=== PATIENT | female | born 1995 | race Caucasian/White ===

== ENCOUNTER 2017-03-09 04:03 | Emergency (ER) | payer OTHER ==
[2017-03-09] MEDS ORDERED: Morphine INJ* 4 MG/ML 1 ML SYRINGE ONE (04:58)
[2017-03-09] MEDS ORDERED: Ondansetron INJ* 2 MG/ML VIAL ONE (04:59)
[2017-03-09 05:30] LABS: Hematocrit 40 % (35-47); Hemoglobin 13.3 g/dl (12.0-16.0); Mean Corpuscular HGB Conc 33 g/dl (31-36); Mean Corpuscular Hemoglobin 27 pg (27-31); Mean Corpuscular Volume 81 fL (80-97); Mean Platelet Volume 8 um3 (7.4-10.4); Red Blood Count 4.95 10^6/ul (4.0-5.4); Red Cell Distribution Width 14 % (10.5-15); White Blood Count 11.9 10^3/ul (3.5-10.8)
[2017-03-09 05:33] LABS: Albumin 4.1 g/dL (3.2-5.2); BUN/Creatinine Ratio 14.5 (8-20); EGFR African American 126.1 (>60); Globulin 3.4 g/dL (2-4); Potassium 3.6 mmol/L (3.5-5.0); Total Bilirubin 0.2 mg/dL (0.2-1.0); Total Protein 7.5 g/dL (6.4-8.9)
[2017-03-09] MEDS ORDERED: Iohexol 300* (CONTRAST) 10 ML SDV IV ONE (05:54)
--- NOTE | 2017-03-09 06:01 | ED ---
Mariusz Burroughs Michael, scribed for Stefan Staples MD on 03/09/17 at 0523 . Abdominal Pain/Female - HPI Summary HPI Summary: 21 y/o female comes to the ED presenting with RUQ abd pain since 0100 this morning. The pt reports that the pain is constant and not aggravated or alleviated by anything. The pt rates the pain a 6 out of 10 on a pain assessment scale. She also c/o nausea. The PMHx is significant for gall stones. - History of Current Complaint Chief Complaint: EDAbdPain Stated Complaint: UPPER AND LOWER RIGHT QUAD PAIN Hx Obtained From: Patient, Medical Records Hx Last Menstrual Period: 3 weeks ago. Onset/Duration: Sudden Onset, Lasting Hours, Still Present Timing: Constant Severity Initially: Moderate Severity Currently: Moderate Pain Intensity: 6 Pain Scale Used: 0-10 Numeric Location: Discrete At: RUQ Radiates: No Aggravating Factor(s): Nothing Alleviating Factor(s): Nothing Associated Signs and Symptoms: Positive: Nausea Allergies/Adverse Reactions: Allergies Allergy/AdvReac Type Severity Reaction Status Date / Time Azithromycin [From Zithromax] Allergy Hives Verified 09/06/16 21:52 Latex Allergy Blisters Verified 09/06/16 21:52 Sulfamethoxazole Allergy Hives Verified 09/06/16 21:52 w/Trimethoprim [From Bactrim] Adhesive Tape AdvReac Intermediate See Comment Verified 09/06/16 21:52 Zolpidem [From Ambien] AdvReac Intense Verified 09/06/16 21:52 panic attack PMH/Surg Hx/FS Hx/Imm Hx Endocrine/Hematology History: Denies: Hx Anticoagulant Therapy, Hx Diabetes, Hx Thyroid Disease Cardiovascular History: Denies: Hx Congestive Heart Failure, Hx Deep Vein Thrombosis, Hx Hypertension , Hx Myocardial Infarction, Hx Pacemaker/ICD Respiratory History: Reports: Hx Asthma - allergy induced Denies: Hx Chronic Obstructive Pulmonary Disease (COPD), Hx Lung Cancer GI History: Reports: Hx Gastroesophageal Reflux Disease - ON MEDICATION FOR Denies: Hx Gall Bladder Disease, Hx Gastrointestinal Bleed, Hx Ulcer, Hx Urosepsis History: Reports: Other Problems/Disorders - gall stones Denies: Hx Kidney Stones, Hx Renal Disease Sensory History: Reports: Hx Contacts or Glasses - GLASSES AT TIMES Denies: Hx Hearing Aid Opthamlomology History: Reports: Hx Contacts or Glasses - GLASSES AT TIMES Neurological History: Reports: Hx Migraine - 0-2 PER WEEK- TREATS WITH GENERIC MED FOR EXCEDRIN MIGRAINE Denies: Hx Dementia, Hx Seizures, Hx Transient Ischemic Attacks (TIA) Psychiatric History: Reports: Hx Anxiety - ON MEDICATION FOR-AND SEES A COUNSLER , Hx Depression - ON MEDICATION FOR-SEES A COUNSLER FOR, Hx Panic Disorder - Pt' s mother will address with pt's MD, Hx of Violent Episodes Against Others - Surgical History Surgery Procedure, Year, and Place: 2001 excision of sinus abscess [facility]. wisdom teeth removed August 2012. knee arthroscopy 05/14/13 Hx Anesthesia Reactions: No Infectious Disease History: Denies: Hx Hepatitis, Hx Human Immunodeficiency Virus (HIV), History Other Infectious Disease, Traveled Outside the [place] in Last 30 Days - Family History Known Family History: Positive: Hypertension Negative: Cardiac Disease - Social History Occupation: Student Lives: With Family Alcohol Use: None Substance Use Type: Reports: None Substance Use Comment - Amount & Last Used: Occasionally Smoking Status (MU): Never Smoked Tobacco Type: Cigarettes Amount Used/How Often: Occasionally smokes Have You Smoked in the Last Year: Yes Review of Systems Negative: Fever Positive: Abdominal Pain, Nausea All Other Systems Reviewed And Are Negative: Yes Physical Exam Triage Information Reviewed: Yes Vital Signs On Initial Exam: Initial Vitals Temp Pulse Resp BP Pulse Ox 97.3 F 84 18 131/67 100 03/09/17 04:05 03/09/17 04:05 03/09/17 04:05 03/09/17 04:05 03/09/17 04:05 Vital Signs Reviewed: Yes Appearance: Positive: Well-Appearing, Pain Distress - mild discomfort Skin: Positive: Warm Eyes: Positive: LATESHA ENT: Positive: Hearing grossly normal Neck: Positive: Supple Respiratory/Lung Sounds: Positive: Clear to Auscultation, Breath Sounds Present Cardiovascular: Positive: RRR Abdomen Description: Positive: Soft, [place] Tenderness - mild. Negative: Distended, Guarding Bowel Sounds: Positive: Present Musculoskeletal: Positive: Strength/ROM Intact Neurological: Positive: Alert, Oriented to Person Place, Time, Normal Gait Psychiatric: Positive: Normal Diagnostics - Vital Signs Vital Signs Temp Pulse Resp BP Pulse Ox 03/09/17 04:05 97.3 F 84 18 131/67 100 - Laboratory Lab Results: Lab Results 03/09/17 03/09/17 Range/Units 04:55 04:55 WBC 11.9 H (3.5-10.8) 10^3/ul RBC 4.95 (4.0-5.4) 10^6/ul Hgb 13.3 (12.0-16.0) g/dl Hct 40 (35-47) % MCV 81 (80-97) fL MCH 27 (27-31) pg MCHC 33 (31-36) g/dl RDW 14 (10.5-15) % Plt Count 279 (150-450) 10^3/ul MPV 8 (7.4-10.4) um3 Neut % (Auto) 63.8 (38-83) % Lymph % (Auto) 25.4 (25-47) % Camp % (Auto) 5.8 (1-9) % Eos % (Auto) 4.6 (0-6) % Baso % (Auto) 0.4 (0-2) % Absolute Neuts (auto) 7.6 (1.5-7.7) 10^3/ul Absolute Lymphs (auto) 3.0 (1.0-4.8) 10^3/ul Absolute Monos (auto) 0.7 (0-0.8) 10^3/ul Absolute Eos (auto) 0.6 (0-0.6) 10^3/ul Absolute Basos (auto) 0 (0-0.2) 10^3/ul Absolute Nucleated RBC 0 10^3/ul Nucleated RBC % 0 Sodium 135 (133-145) mmol/L Potassium 3.6 (3.5-5.0) mmol/L Chloride 104 (101-111) mmol/L Carbon Dioxide 22 (22-32) mmol/L Anion Gap 9 (2-11) mmol/L BUN 11 (6-24) mg/dL Creatinine 0.76 (0.51-0.95) mg/dL Est GFR ( Amer) 126.1 (>60) Est GFR (Non-Af Amer) 98.0 (>60) BUN/Creatinine Ratio 14.5 (8-20) Glucose 108 H (70-100) mg/dL Calcium 9.0 (8.6-10.3) mg/dL Magnesium 2.0 (1.9-2.7) mg/dL Total Bilirubin 0.20 (0.2-1.0) mg/dL AST 23 (13-39) U/L ALT 28 (7-52) U/L Alkaline Phosphatase 74 (34-104) U/L Total Protein 7.5 (6.4-8.9) g/dL Albumin 4.1 (3.2-5.2) g/dL Globulin 3.4 (2-4) g/dL Albumin/Globulin Ratio 1.2 (1-3) Lipase 24 (11.0-82.0) U/L Result Diagrams: 03/09/17 04:55 03/09/17 04:55 Lab Statement: Any lab studies that have been ordered have been reviewed, and results considered in the medical decision making process. - CT CT brain CT Interpretation: No Acute Changes CT Interpretation Completed By: Radiologist Re-Evaluation - Re-Evaluation First Eval Change: Improved - results d/w pt Abdominal Pain Fem Course/Dx - Diagnoses Provider Diagnoses: Abdominal pain Discharge - Discharge Plan Condition: Stable Disposition: HOME Patient Education Materials: Abdominal Pain (ED) Referrals: Kika Hunter MD [Primary Care Provider] - Additional Instructions: Please follow up with Dr. Hunter within the next 2-3 days. The documentation as recorded by the Mariusz bass Michael accurately reflects the service I personally performed and the decisions made by Jhoan amin David, MD.
[2017-03-09 06:48] LABS: Urine Bacteria 1+ (Absent); Urine Bilirubin Negative (Negative); Urine Glucose Negative (Negative); Urine Nitrite Negative (Negative)
[2017-03-09 07:25] VITALS: BP 112/73
--- NOTE | 2017-03-09 07:35 | RAD ---
INDICATION: Diffuse lower abdominal pain COMPARISON: CT abdomen and pelvis November 17, 2014 TECHNIQUE: Axial source images were obtained from the hemidiaphragms to the symphysis pubis following administration of oral and intravenous contrast. 115 mL Omnipaque 300 was utilized. Coronal and sagittal reconstructed images were acquired. Lung bases: The lung bases are clear. Liver: The liver is normal in size. There are no masses. There is no ductal dilatation. Gallbladder: There are no calcified gallstones. There is no evidence of wall thickening or pericholecystic fluid. Spleen: The spleen is normal in size. There are no masses. Pancreas: There is no focal pancreatic mass or ductal dilatation. Adrenal glands: There is no evidence of adrenal mass. Kidneys: The kidneys are normal in size and position. There are prompt nephrograms and there is prompt excretion bilaterally. There are no renal parenchymal masses. There is no evidence of nephrolithiasis. Adenopathy: There is no evidence of adenopathy by size criteria. Fluid collections: There are no free or localized fluid collections. Vessels:There are no significant atherosclerotic changes involving the aorta. There is no focal aneurysm. The iliac vessels are normal in caliber. The IVC appears normal. GI tract: There are no acute CT bowel findings. There is no obstruction. The stomach and small bowel appear normal. The lower GI tract is normal. The cecum, ileocecal valve, and terminal ileum appear normal. The appendix is visualized and appear normal. Pelvic organs: The uterus and adnexa appear normal. There is an IUD Bladder: There are no bladder masses. Abdominal and pelvic soft tissues: The extraperitoneal abdominal and pelvic soft tissues appear normal.. Osseous structures: There are no acute osseous findings. Other: None IMPRESSION: NO ACUTE CT FINDINGS. NO MASS OR INFLAMMATORY CHANGE.
== END 2017-03-09 07:25 | disposition home or self-care (01) ==
LOC: ED 04:03
DX: R10.11 Right upper quadrant pain (principal); F17.200 Nicotine dependence, unspecified, uncomplicated; F32.9 Major depressive disorder, single episode, unspecified; F41.9 Anxiety disorder, unspecified; K21.9 Gastro-esophageal reflux disease without esophagitis
CPT/HCPCS: 36415; 74177; 80053; 81003; 81015; 83690; 83735; 85025; 87086; 99283; J2270; J2405; Q9967

== ENCOUNTER 2017-03-18 21:12 | Emergency (ER) | payer OTHER ==
[2017-03-18 21:30] VITALS: BP 114/68
--- NOTE | 2017-03-18 22:08 | UC ---
Complaint Female HPI - HPI Summary HPI Summary: had IUD placed 3 months ago she can no longer feel the string--partner belies she feels sharp metal at her cervix - History Of Current Complaint Chief Complaint: UCGU Stated Complaint: PERSONAL Time Seen by Provider: 03/18/17 21:28 Hx Obtained From: Patient Hx Last Menstrual Period: 02/15/17 ?: No Onset/Duration: Sudden Onset, Lasting Days, Still Present Timing: Constant Severity Initially: Mild Severity Currently: Mild Character: Sharp Aggravating Factor(s): Movement, [place] Alleviating Factor(s): Nothing Associated Signs And Symptoms: Positive: Negative - Allergies/Home Medications Allergies/Adverse Reactions: Allergies Allergy/AdvReac Type Severity Reaction Status Date / Time Azithromycin [From Zithromax] Allergy Hives Verified 09/06/16 21:52 Latex Allergy Blisters Verified 09/06/16 21:52 Sulfamethoxazole Allergy Hives Verified 09/06/16 21:52 w/Trimethoprim [From Bactrim] Adhesive Tape AdvReac Intermediate See Comment Verified 09/06/16 21:52 Zolpidem [From Ambien] AdvReac Intense Verified 09/06/16 21:52 panic attack PMH/Surg Hx/FS Hx/Imm Hx Previously Healthy: No Endocrine History Of: Denies: Diabetes, Thyroid Disease, Hyperthyroidism, Hypothyroidism, Dyslipidemia Cardiovascular History Of: Denies: Cardiac Disorders, Hypertension, Pacemaker/ICD, Myocardial Infarction , Congestive Heart Failure, Atrial Fibrillation, Deep Vein Thrombosis, Bleeding Disorders Respiratory History Of: Reports: Asthma - allergy induced Denies: COPD GI/ History Of: Reports: Gastroesophageal Reflux Denies: Ulcer, Gastrointestinal Bleed, Gall Bladder Disease, Kidney Stones, Diverticulitis, Renal Disease, Urosepsis Neurological History Of: Reports: Migraine - 0-2 PER WEEK- TREATS WITH GENERIC MED FOR EXCEDRIN MIGRAINE Denies: TIA, CVA, Dementia, Seizures Psychological History Of: Reports: Anxiety - ON MEDICATION FOR-AND SEES A COUNSLER, Depression - ON MEDICATION FOR-SEES A COUNSLER FOR, Post Traumatic Stress Disorder Cancer History Of: Denies: Lung Cancer, Colorectal Cancer, Breast Cancer, Prostate Cancer, Cervical Cancer Other History Of: Negative For: HIV, Hepatitis B, Hepatitis C, Anticoagulant Therapy - Surgical History Surgical History: Yes Surgery Procedure, Year, and Place: 2001 excision of sinus abscess [facility]. wisdom teeth removed August 2012. knee arthroscopy 05/14/13 - Family History Known Family History: Positive: Hypertension Negative: Cardiac Disease Family History: NON CONTRIBUTORY - Social History Occupation: Employed Full-time Lives: With Family Alcohol Use: Occasionally Substance Use Type: None Substance Use Comment - Amount & Last Used: Occasionally Smoking Status (MU): Current Some Day Smoker Type: Cigarettes Amount Used/How Often: Occasionally smokes Have You Smoked in the Last Year: Yes Cessation Counseling: Patient Advised to Stop - Immunization History Vaccination Up to Date: Yes Review of Systems Constitutional: Negative Skin: Negative Eyes: Negative ENT: Negative Respiratory: Negative Cardiovascular: Negative Gastrointestinal: Negative Genitourinary: Negative Motor: Negative Neurovascular: Negative Musculoskeletal: Negative Neurological: Negative Psychological: Negative All Other Systems Reviewed And Are Negative: Yes Physical Exam Triage Information Reviewed: Yes Appearance: Well-Appearing, No Pain Distress, Well-Nourished Vital Signs: Initial Vital Signs Temp 97.7 F 03/18/17 21:26 Pulse 96 03/18/17 21:26 Resp 18 03/18/17 21:26 BP 114/68 03/18/17 21:26 Pulse Ox 99 03/18/17 21:26 Vital Signs Reviewed: Yes Eye Exam: Normal Eyes: Positive: Conjunctiva Clear ENT Exam: Normal ENT: Positive: Normal ENT inspection, Hearing grossly normal, Pharynx normal. Negative: Nasal congestion, Nasal drainage, Trismus, Muffled/hoarse voice Dental Exam: Normal Neck exam: Normal Neck: Positive: Supple, Nontender, No Lymphadenopathy Respiratory Exam: Normal Respiratory: Positive: Chest non-tender, Lungs clear, Normal breath sounds, No respiratory distress, No accessory muscle use Cardiovascular Exam: Normal Cardiovascular: Positive: RRR, No Murmur, Pulses Normal, Brisk Capillary Refill Abdominal Exam: Normal Abdomen Description: Positive: Nontender, No Organomegaly, Soft, Other: - no pelvic pain---unable to visualive string to IUD other rogers normal examination Bowel Sounds: Positive: Present Musculoskeletal Exam: Normal Musculoskeletal: Positive: Strength Intact, ROM Intact, No Edema Neurological Exam: Normal Neurological: Positive: Alert, Muscle Tone Normal Psychological Exam: Normal Skin Exam: Normal Complaint Female Dx - Course Course Of Treatment: follow at [facility] in [facility] days--- - Differential Dx/Diagnosis Differential Diagnosis/HQI/PQRI: Pelvic Inflammatory Disease, Retained Foreign Body, Ureteral Stone, Urinary Tract Infection Provider Diagnoses: Possible IUD malplacement Discharge - Discharge Plan Condition: Stable Disposition: HOME Patient Education Materials: Pelvic Pain in Women (ED) Referrals: Kika Hunter MD [Primary Care Provider] - Additional Instructions: Follow up at [facility] in the morning to assure placement of your IUD [phone]
== END 2017-03-18 22:30 | disposition home or self-care (01) ==
LOC: UCEAST 21:12
DX: Z97.5 Presence of (intrauterine) contraceptive device (principal); Z32.02 Encounter for pregnancy test, result negative; K21.9 Gastro-esophageal reflux disease without esophagitis; G43.909 Migraine, unspecified, not intractable, without status migrainosus; F41.9 Anxiety disorder, unspecified; F32.9 Major depressive disorder, single episode, unspecified; F43.10 Post-traumatic stress disorder, unspecified; F17.210 Nicotine dependence, cigarettes, uncomplicated; Z91.040 Latex allergy status; Z88.3 Allergy status to other anti-infective agents; Z91.048 Other nonmedicinal substance allergy status
CPT/HCPCS: 81003; 84702; 87086; 87480; 87491; 87510; 87591; 87661; 99211; G0463

== ENCOUNTER 2017-04-16 17:30 | Emergency (ER) | payer OTHER ==
[2017-04-16] MEDS ORDERED: Ibuprofen TAB* 600 MG PO ONE (17:56)
[2017-04-16 20:13] VITALS: BP 103/64
--- NOTE | 2017-04-16 21:19 | UC ---
Dexter Burroughs Benjamin, scribed for Elva Tran MD on 04/16/17 at 2045 . General HPI - HPI Summary HPI Summary: 21yo female c/o occipital headache and neck pain for 3 days that has been progressively worsening since onset. Pt also states hot flashes, chills, diaphoresis, body aches, but denies fever. Pt reports that there was a bird with positive West Nile virus in her neighborhood. Pt also reports many mosquito bites. Her headache and neck pain worsens with head movement. Pt also has mild back pain and shoulder pain. Pt usually sees a chiropractor but didnt go today due to her severe neck pain. Took Advil DISC JOCKEY, which didnt help. Ibuprofen at triage around 6pm helped with back and shoulder pain, but did not resolve headache or neck pain. Hx of nerve blocks in L-spine. Pt has Nexplanon placed on her left arm. - History of Current Complaint Chief Complaint: UCGeneralIllness Stated Complaint: BODY ACHE,FEELS WARM, FUZZY VISION Time Seen by Provider: 04/16/17 19:46 Hx Obtained From: Patient, Family/Neurological Physiotherapist - mother Onset/Duration: Gradual Onset, Lasting Days - 3 days, Still Present, Worse Since - progressively worsening Timing: Constant Onset Severity: Mild Current Severity: Moderate Pain Intensity: 3 Associated Signs & Symptoms: Positive: Back Pain, Dizziness, Diaphoresis, Headache, Other - neck pain, chills, body aches. Negative: Abdominal Pain, Fever, SOB - Allergy/Home Medications Allergies/Adverse Reactions: Allergies Allergy/AdvReac Type Severity Reaction Status Date / Time Azithromycin [From Zithromax] Allergy Hives Verified 04/16/17 21:13 Latex Allergy Blisters Verified 04/16/17 21:13 Sulfamethoxazole Allergy Hives Verified 04/16/17 21:13 w/Trimethoprim [From Bactrim] Adhesive Tape AdvReac Intermediate See Comment Verified 04/16/17 21:13 Zolpidem [From Ambien] AdvReac Intense Verified 04/16/17 21:13 panic attack PMH/Surg Hx/FS Hx/Imm Hx Previously Healthy: No Neurological History: Other Other Neurological History: nerve block on L-spine Other History Of: Negative For: HIV, Hepatitis B, Hepatitis C, Anticoagulant Therapy - Surgical History Surgical History: Yes Surgery Procedure, Year, and Place: 2001 excision of sinus abscess [facility]. wisdom teeth removed August 2012. knee arthroscopy 05/14/13 - Family History Known Family History: Positive: Hypertension Negative: Cardiac Disease Family History: NON CONTRIBUTORY - Social History Occupation: Employed Full-time - [employer] Lives: With Family Alcohol Use: Occasionally Substance Use Type: None Substance Use Comment - Amount & Last Used: Occasionally Smoking Status (MU): Current Some Day Smoker Type: Cigarettes Amount Used/How Often: Occasionally smokes Have You Smoked in the Last Year: Yes - Immunization History Vaccination Up to Date: Yes Review of Systems Constitutional: Chills, Other - diaphoresis Skin: Negative Eyes: Negative ENT: Negative Respiratory: Negative Cardiovascular: Negative Gastrointestinal: Negative Genitourinary: Negative Motor: Negative Neurovascular: Negative Musculoskeletal: Arthralgia - neck pain, upper back pain, Myalgia - diffuse, Other: - JONES Neurological: Headache Psychological: Negative All Other Systems Reviewed And Are Negative: Yes Physical Exam Triage Information Reviewed: Yes Appearance: Well-Appearing, Well-Nourished, Pain Distress - mild, Other: - diaphoretic Vital Signs: Initial Vital Signs Temp 98 F 04/16/17 17:51 Pulse 99 04/16/17 17:51 Resp 16 04/16/17 17:51 BP 101/63 04/16/17 17:51 Pulse Ox 98 04/16/17 17:51 Vital Signs Reviewed: Yes Eyes: Positive: Conjunctiva Clear ENT: Positive: Normal ENT inspection, Hearing grossly normal. Negative: Muffled /hoarse voice Neck: Positive: Supple, No Lymphadenopathy, Tenderness @ - Good chin to chest but posterior neck pain upon flexion Respiratory: Positive: Lungs clear, Normal breath sounds, No respiratory distress Cardiovascular: Positive: RRR, No Murmur, Pulses Normal, Brisk Capillary Refill Abdomen Description: Positive: Nontender, Soft Musculoskeletal: Positive: Strength Intact, ROM Intact, Other: - Tenderness mid upper back, posterior C-spine. Neurological: Positive: Alert, Muscle Tone Normal Psychological Exam: Normal Skin: Positive: Other - Nexplanon placed on left arm; diaphoretic; multiple mosquito bites Diagnostics - Laboratory Diagnostic Studies Completed/Ordered: UA: positive for blood and leukocyte esteras, but otherwise normal urine. Negative test. Course/Dx - Course Course Of Treatment: Reviewed medication lists and known allergies. UA: positive for blood and leukocyte esterase, but otherwise normal urine. Negative test. 21yo female c/o neck pain and JONES for 3 days that has been worsening progressively. Pt had a West Nile virus positive bird next door and 2 more in her neighborhood and and she presents with multiple mosquito bite morrow. Pt reports pain worsening with head movement. Also reports body aches, back pain, shoulder pain, chills, hot flashes, diaphoresis, but no fever. Temp was 98F in room. Pt's shirt was completely soaked in sweat. Pt took Advil DISC JOCKEY, which did not help with her symptoms and may have masked fever. Ibuprofen in triage helped with shoulder and back pain, but not with neck pain and headache. 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 Pt will be transferred to [facility] for higher level of care and concern for possible West Nile meningitis, encephalitis. Pt has urinary sxs, UA was done when pt had to urinate to evaluate for and because she had systemic symptoms. I do not think pt has UTI to account for her sxs at this time. - Differential Dx - Multi-Symptom Differential Diagnoses: Sepsis, Other - West Nile virus encephalitis or meningitis; viral syndrome Provider Diagnoses: headache, neck pain. Hx West Nile virus bird in neighborhood. possible UTI - Physician Notifications Discussed Patient Care With: Tamra Brown - regarding transfer Time Discussed With Above Provider: 20:20 Discharge - Discharge Plan Condition: Stable Disposition: AGAINST MEDICAL ADVICE Referrals: Kika Hunter MD [Primary Care Provider] - The documentation as recorded by the Dexter bass Benjamin accurately reflects the service I personally performed and the decisions made by me, Elva Tran MD.
== END 2017-04-16 20:42 | disposition left against medical advice (07) ==
LOC: UCEAST 17:30
DX: R51 Headache (principal); M54.2 Cervicalgia; Z53.20 Procedure and treatment not carried out because of patient's decision for unspecified reasons; Z72.0 Tobacco use
CPT/HCPCS: 81003; 84702; 87086; 99212; A9270-GY; G0463

== ENCOUNTER 2017-04-16 21:12 | Emergency (ER) | payer OTHER ==
[2017-04-16] MEDS ORDERED: Morphine INJ* 4 MG/ML 1 ML SYRINGE IV ONE (23:49)
[2017-04-16] MEDS ORDERED: NS 0.9% 1000 ML* 1,000 ML IV ONE (23:49)
[2017-04-16] MEDS ORDERED: Ondansetron INJ* 2 MG/ML VIAL IV ONE (23:49)
[2017-04-17 00:28] LABS: Hematocrit 41 % (35-47); Hemoglobin 13.6 g/dl (12.0-16.0); Mean Corpuscular HGB Conc 34 g/dl (31-36); Mean Corpuscular Hemoglobin 27 pg (27-31); Mean Corpuscular Volume 81 fL (80-97); Mean Platelet Volume 8 um3 (7.4-10.4); Red Blood Count 5.01 10^6/ul (4.0-5.4); Red Cell Distribution Width 14 % (10.5-15); White Blood Count 6.8 10^3/ul (3.5-10.8)
[2017-04-17 00:35] LABS: Albumin 3.9 g/dL (3.2-5.2); BUN/Creatinine Ratio 13.4 (8-20); Calcium 8.8 mg/dL (8.6-10.3); EGFR African American 145.8 (>60); EGFR Non-African American 113.4 (>60); Globulin 3.6 g/dL (2-4); Potassium 3.7 mmol/L (3.5-5.0); Total Bilirubin 0.3 mg/dL (0.2-1.0); Total Protein 7.5 g/dL (6.4-8.9)
[2017-04-17 00:36] LABS: Urine Bacteria 1+ (Absent); Urine Bilirubin Negative (Negative); Urine Glucose Negative (Negative); Urine Nitrite Negative (Negative)
[2017-04-17 00:58] LABS: C Reactive Protein 85.31 mg/L (< 5.00)
[2017-04-17] MEDS ORDERED: cefTRIAXone(*) 2 GM ADDV.VIAL IVPB ONE (01:01)
[2017-04-17 01:12] LABS: Erythrocyte Sed Rate 39 mm/Hr (0-14)
[2017-04-17] MEDS ORDERED: HYDROmorphone* 1 MG/ML 1 ML SYR IV ONE (01:20)
[2017-04-17 02:20] LABS: CSF Glucose 69 mg/dL (40-70)
[2017-04-17 02:31] LABS: BF WBC Count #1 1; BF WBC Count #2 0; Body Fluid Appearance Clear
[2017-04-17 02:32] LABS: BF RBC Count #1 0; BF RBC Count #2 0; Body Fluid WBC 1 /mcL; RBC counts within 6%? Yes; WBC counts within 15%? Yes
[2017-04-17 02:36] LABS: Body Fluid Total Cells Counted 0
[2017-04-17] MEDS ORDERED: oxyCODONE/Acetamin 5/325 MG* TAB PO ONE (02:52)
[2017-04-17] MEDS ORDERED: Cyclobenzaprine TAB* 10 MG PO ONE (02:53)
--- NOTE | 2017-04-17 03:05 | ED ---
Rusty Burroughs Rebecca, scribed for Tamra Brown MD on 04/16/17 at 2340 . Headache - HPI Summary HPI Summary: Patient is a 21 y/o F referred from [facility] who presents to ED c/o JONES. JONES began 2 days ago and has been constant since onset, worsening last night. Pain is in the occipital region at the "base of the skull" with radiation into the neck. Pain began as mild (4/10), is currently moderate, ranked 6/10 and characterized as a constant aching with occasional sharp pain. Sx aggravated by movement, alleviated by nothing. Additionally c/o dizziness. Denies fever, rash. Reports that there was a bird found in her yard that tested positive for West Nile Virus, as well as 3 others in the neighborhood. PMHx migraines - current sx are not similar to prior migraines. - History Of Current Complaint Chief Complaint: EDGeneral Stated Complaint: NECK PAIN,STIFFNESS-SENT FROM [facility] Time Seen by Provider: 04/16/17 23:20 Hx Obtained From: Patient Hx Last Menstrual Period: 02/11/17 Onset/Duration: Worse Since - last night Initially Headache Was: Mild - 4/10 Currently Pain Is: Moderate - 6/10 Timing: Constant Character: Sharp - intermittent, Dull - constant Location of Headache: Occipital Radiates to: Neck Aggravating Factor: Other - Movement Allevating Factors: Nothing Associated Signs And Symptoms: Dizziness - Allergies/Home Medications Allergies/Adverse Reactions: Allergies Allergy/AdvReac Type Severity Reaction Status Date / Time Azithromycin [From Zithromax] Allergy Hives Verified 04/16/17 21:13 Latex Allergy Blisters Verified 04/16/17 21:13 Sulfamethoxazole Allergy Hives Verified 04/16/17 21:13 w/Trimethoprim [From Bactrim] Adhesive Tape AdvReac Intermediate See Comment Verified 04/16/17 21:13 Zolpidem [From Ambien] AdvReac Intense Verified 04/16/17 21:13 panic attack PMH/Surg Hx/FS Hx/Imm Hx Endocrine/Hematology History: Denies: Hx Anticoagulant Therapy, Hx Diabetes, Hx Thyroid Disease Cardiovascular History: Denies: Hx Congestive Heart Failure, Hx Deep Vein Thrombosis, Hx Hypertension , Hx Myocardial Infarction, Hx Pacemaker/ICD Respiratory History: Reports: Hx Asthma - allergy induced Denies: Hx Chronic Obstructive Pulmonary Disease (COPD), Hx Lung Cancer GI History: Reports: Hx Gastroesophageal Reflux Disease - ON MEDICATION FOR Denies: Hx Gall Bladder Disease, Hx Gastrointestinal Bleed, Hx Ulcer, Hx Urosepsis History: Reports: Other Problems/Disorders - gall stones Denies: Hx Kidney Stones, Hx Renal Disease Sensory History: Reports: Hx Contacts or Glasses - GLASSES AT TIMES Denies: Hx Hearing Aid Opthamlomology History: Reports: Hx Contacts or Glasses - GLASSES AT TIMES Neurological History: Reports: Hx Migraine - 0-2 PER WEEK- TREATS WITH GENERIC MED FOR EXCEDRIN MIGRAINE Denies: Hx Dementia, Hx Seizures, Hx Transient Ischemic Attacks (TIA) Psychiatric History: Reports: Hx Anxiety - ON MEDICATION FOR-AND SEES A COUNSLER , Hx Depression - ON MEDICATION FOR-SEES A COUNSLER FOR, Hx Panic Disorder - Pt' s mother will address with pt's MD, Hx of Violent Episodes Against Others - Surgical History Surgery Procedure, Year, and Place: 2001 excision of sinus abscess [facility]. wisdom teeth removed August 2012. knee arthroscopy 05/14/13 Hx Anesthesia Reactions: No Infectious Disease History: No Infectious Disease History: Denies: Hx Clostridium Difficile, Hx Hepatitis, Hx Human Immunodeficiency Virus (HIV), Hx of Known/Suspected MRSA, Hx Shingles, Hx Tuberculosis, Hx Known/ Suspected VRE, Hx Known/Suspected VRSA, History Other Infectious Disease, Traveled Outside the US in Last 30 Days - Family History Known Family History: Positive: Hypertension Negative: Cardiac Disease - Social History Alcohol Use: Occasionally Substance Use Type: Reports: None Substance Use Comment - Amount & Last Used: Occasionally Smoking Status (MU): Current Some Day Smoker Type: Cigarettes Amount Used/How Often: Occasionally smokes Have You Smoked in the Last Year: Yes Review of Systems Negative: Fever Negative: Rash Neurological: Other - Dizziness Positive: Headache - Occipital JONES with radiation to the neck All Other Systems Reviewed And Are Negative: Yes Physical Exam - Summary Physical Exam Summary: General: Well appearing, slightly meningismus Skin: Warm, Skin Color Reflects Adequate Perfusion, Dry Eyes: EOMI, LATESHA ENT: Pharynx normal, TMs normal Neck: Supple, nontender Respiratory: CTA, breath sounds present, no rhonchi, no wheezes, no rales Cardiovascular: RRR, no murmur, no rub, no gallop Abdomen: Soft, nontender, Non-distended, no guarding, no rebound Bowel: Present Musculoskeletal: IBIS, No edema Neuro: Sensory/motor intact, A&Ox3, CN intact 2-12 Psych: Affect/mood appropriate Triage Information Reviewed: Yes Vital Signs On Initial Exam: Initial Vitals Temp Pulse Resp BP Pulse Ox 98.1 F 95 18 114/68 100 04/16/17 21:14 04/16/17 21:14 04/16/17 21:14 04/16/17 21:14 04/16/17 21:14 Vital Signs Reviewed: Yes - [place] Coma Scale Coma Scale Total: 15 Procedures - Lumbar Puncture Position: Sitting Aseptic Technique: Lidocaine Anesthesia Used: 1.0% Lido Spinal Needle Used: 20 Gauge Lumbar Puncture Note: Procedure went well, fluid is clear. Diagnostics - Vital Signs Vital Signs Temp Pulse Resp BP Pulse Ox 04/16/17 23:04 92 99 04/16/17 23:02 102/60 04/16/17 21:14 98.1 F 95 18 114/68 100 - Laboratory Lab Results: Lab Results 04/16/17 04/17/17 04/17/17 Range/Units 23:22 00:03 00:03 WBC 6.8 (3.5-10.8) 10^3/ul RBC 5.01 (4.0-5.4) 10^6/ul Hgb 13.6 (12.0-16.0) g/dl Hct 41 (35-47) % MCV 81 (80-97) fL MCH 27 (27-31) pg MCHC 34 (31-36) g/dl RDW 14 (10.5-15) % Plt Count 177 (150-450) 10^3/ul MPV 8 (7.4-10.4) um3 Neut % (Auto) 61.3 (38-83) % Lymph % (Auto) 30.2 (25-47) % [place] % (Auto) 7.3 (1-9) % Eos % (Auto) 0.7 (0-6) % Baso % (Auto) 0.5 (0-2) % Absolute Neuts (auto) 4.2 (1.5-7.7) 10^3/ul Absolute Lymphs (auto) 2.1 (1.0-4.8) 10^3/ul Absolute Monos (auto) 0.5 (0-0.8) 10^3/ul Absolute Eos (auto) 0 (0-0.6) 10^3/ul Absolute Basos (auto) 0 (0-0.2) 10^3/ul Absolute Nucleated RBC 0.01 10^3/ul Nucleated RBC % 0.1 ESR 39 H (0-14) mm/Hr Carbon Monoxide Screen (<3.5) % Sodium 134 (133-145) mmol/L Potassium 3.7 (3.5-5.0) mmol/L Chloride 105 (101-111) mmol/L Carbon Dioxide 21 L (22-32) mmol/L Anion Gap 8 (2-11) mmol/L BUN 9 (6-24) mg/dL Creatinine 0.67 (0.51-0.95) mg/dL Est GFR ( Amer) 145.8 (>60) Est GFR (Non-Af Amer) 113.4 (>60) BUN/Creatinine Ratio 13.4 (8-20) Glucose 119 H (70-100) mg/dL Lactic Acid (0.5-2.0) mmol/L Calcium 8.8 (8.6-10.3) mg/dL Total Bilirubin 0.30 (0.2-1.0) mg/dL AST 36 (13-39) U/L ALT 45 (7-52) U/L Alkaline Phosphatase 92 (34-104) U/L C-Reactive Protein 85.31 H (< 5.00) mg/L Total Protein 7.5 (6.4-8.9) g/dL Albumin 3.9 (3.2-5.2) g/dL Globulin 3.6 (2-4) g/dL Albumin/Globulin Ratio 1.1 (1-3) Urine Color Yellow Urine Appearance Cloudy Urine pH 6.0 (5-9) Ur Specific [place] 1.008 L (1.010-1.030) Urine Protein Negative (Negative) Urine Ketones Negative (Negative) Urine Blood 2+ H (Negative) Urine Nitrate Negative (Negative) Urine Bilirubin Negative (Negative) Urine Urobilinogen Negative (Negative) Ur Leukocyte Esterase 3+ H (Negative) Urine WBC (Auto) 2+(11-20/hpf) H (Absent) Urine RBC (Auto) 2+(6-10/hpf) H (Absent) Ur Squamous Epith Cells Present H (Absent) Urine Bacteria 1+ H (Absent) Urine Glucose Negative (Negative) Fluid Source Fluid Volume mL Fluid Color Fluid Appearance Fluid WBC /mcL Fluid RBC /mcL Fluid Tot Cell Count Fluid Cell Count Rvw By CSF Cell Count Tube # CSF Glucose (40-70) mg/dL CSF Total Protein (15-45) mg/dL 04/17/17 04/17/17 04/17/17 Range/Units 00:03 00:45 01:45 WBC (3.5-10.8) 10^3/ul RBC (4.0-5.4) 10^6/ul Hgb (12.0-16.0) g/dl Hct (35-47) % MCV (80-97) fL MCH (27-31) pg MCHC (31-36) g/dl RDW (10.5-15) % Plt Count (150-450) 10^3/ul MPV (7.4-10.4) um3 Neut % (Auto) (38-83) % Lymph % (Auto) (25-47) % [place] % (Auto) (1-9) % Eos % (Auto) (0-6) % Baso % (Auto) (0-2) % Absolute Neuts (auto) (1.5-7.7) 10^3/ul Absolute Lymphs (auto) (1.0-4.8) 10^3/ul Absolute Monos (auto) (0-0.8) 10^3/ul Absolute Eos (auto) (0-0.6) 10^3/ul Absolute Basos (auto) (0-0.2) 10^3/ul Absolute Nucleated RBC 10^3/ul Nucleated RBC % ESR (0-14) mm/Hr Carbon Monoxide Screen <3.5 (<3.5) % Sodium (133-145) mmol/L Potassium (3.5-5.0) mmol/L Chloride (101-111) mmol/L Carbon Dioxide (22-32) mmol/L Anion Gap (2-11) mmol/L BUN (6-24) mg/dL Creatinine (0.51-0.95) mg/dL Est GFR ( Amer) (>60) Est GFR (Non-Af Amer) (>60) BUN/Creatinine Ratio (8-20) Glucose (70-100) mg/dL Lactic Acid 1.1 (0.5-2.0) mmol/L Calcium (8.6-10.3) mg/dL Total Bilirubin (0.2-1.0) mg/dL AST (13-39) U/L ALT (7-52) U/L Alkaline Phosphatase (34-104) U/L C-Reactive Protein (< 5.00) mg/L Total Protein (6.4-8.9) g/dL Albumin (3.2-5.2) g/dL Globulin (2-4) g/dL Albumin/Globulin Ratio (1-3) Urine Color Urine Appearance Urine pH (5-9) Ur Specific [place] (1.010-1.030) Urine Protein (Negative) Urine Ketones (Negative) Urine Blood (Negative) Urine Nitrate (Negative) Urine Bilirubin (Negative) Urine Urobilinogen (Negative) Ur Leukocyte Esterase (Negative) Urine WBC (Auto) (Absent) Urine RBC (Auto) (Absent) Ur Squamous Epith Cells (Absent) Urine Bacteria (Absent) Urine Glucose (Negative) Fluid Source Fluid Volume mL Fluid Color Fluid Appearance Fluid WBC /mcL Fluid RBC /mcL Fluid Tot Cell Count Fluid Cell Count Rvw By CSF Cell Count Tube # CSF Glucose 69 (40-70) mg/dL CSF Total Protein 31 (15-45) mg/dL 04/17/ Range/Units 01:45 WBC (3.5-10.8) 10^3/ul RBC (4.0-5.4) 10^6/ul Hgb (12.0-16.0) g/dl Hct (35-47) % MCV (80-97) fL MCH (27-31) pg MCHC (31-36) g/dl RDW (10.5-15) % Plt Count (150-450) 10^3/ul MPV (7.4-10.4) um3 Neut % (Auto) (38-83) % Lymph % (Auto) (25-47) % [place] % (Auto) (1-9) % Eos % (Auto) (0-6) % Baso % (Auto) (0-2) % Absolute Neuts (auto) (1.5-7.7) 10^3/ul Absolute Lymphs (auto) (1.0-4.8) 10^3/ul Absolute Monos (auto) (0-0.8) 10^3/ul Absolute Eos (auto) (0-0.6) 10^3/ul Absolute Basos (auto) (0-0.2) 10^3/ul Absolute Nucleated RBC 10^3/ul Nucleated RBC % ESR (0-14) mm/Hr Carbon Monoxide Screen (<3.5) % Sodium (133-145) mmol/L Potassium (3.5-5.0) mmol/L Chloride (101-111) mmol/L Carbon Dioxide (22-32) mmol/L Anion Gap (2-11) mmol/L BUN (6-24) mg/dL Creatinine (0.51-0.95) mg/dL Est GFR ( Amer) (>60) Est GFR (Non-Af Amer) (>60) BUN/Creatinine Ratio (8-20) Glucose (70-100) mg/dL Lactic Acid (0.5-2.0) mmol/L Calcium (8.6-10.3) mg/dL Total Bilirubin (0.2-1.0) mg/dL AST (13-39) U/L ALT (7-52) U/L Alkaline Phosphatase (34-104) U/L C-Reactive Protein (< 5.00) mg/L Total Protein (6.4-8.9) g/dL Albumin (3.2-5.2) g/dL Globulin (2-4) g/dL Albumin/Globulin Ratio (1-3) Urine Color Urine Appearance Urine pH (5-9) Ur Specific [place] (1.010-1.030) Urine Protein (Negative) Urine Ketones (Negative) Urine Blood (Negative) Urine Nitrate (Negative) Urine Bilirubin (Negative) Urine Urobilinogen (Negative) Ur Leukocyte Esterase (Negative) Urine WBC (Auto) (Absent) Urine RBC (Auto) (Absent) Ur Squamous Epith Cells (Absent) Urine Bacteria (Absent) Urine Glucose (Negative) Fluid Source Cerebral spinal Fluid Volume 1.0 mL Fluid Color Colorless Fluid Appearance Clear Fluid WBC 1 /mcL Fluid RBC 0 /mcL Fluid Tot Cell Count 0 Fluid Cell Count Rvw By Pending CSF Cell Count Tube # Tube #4 CSF Glucose (40-70) mg/dL CSF Total Protein (15-45) mg/dL Result Diagrams: 04/17/17 00:03 04/17/17 00:03 Lab Statement: Any lab studies that have been ordered have been reviewed, and results considered in the medical decision making process. - CT Brain CT CT Interpretation: No Acute Changes - There is no CT evidence of acute territorial infarction. THere is no acute intracranial hemorrhage, mass effect of cerebral edema identified. The ventricles are unremarkable. Basilar cisterns patent. No abnormal intra-axial or extra-axial fluid collection is seen. THe bones of the calcarium and images skull base demonstrate no acute abnormality. The imaged paranasal sinuses and mastoid are cells are unremarkable. Imaged orbits are unremarkable. CT Interpretation Completed By: Radiologist Re-Evaluation - Re-Evaluation First Eval Re-Evaluation Time: 00:42 Change: Unchanged Comment: Discussed lab results in thus far and talked about how she has a UTI. No CVA tenderness. Is receiving pain medications now. Second Eval Re-Evaluation Time: 01:19 Change: Unchanged Comment: Disclosed new lab results. Profusely discussed the option of an LP and the patient has opted for the LP. Third Eval Re-Evaluation Time: 02:48 Change: Improved Comment: Talked about LP headache. Pt is doing well. Headache Course/Dx - Course Course Of Treatment: 21 yo female with headache unlike her typical migraine along with neck stiffness she was sent from urgent care with the concern for west nile virus since several birds in her neighborhood have apparently of such. Upon testing pt did not have an elevated wbc, but did have a uti, and an elevated esr and crp. The idea of doing the LP was discussed at length with the pt and her mom and pt elected to go forward, the LP was negative but west nile virus serology was sent. Pt is being sent home with pain meds, abx, and muscle relaxers - Diagnoses Provider Diagnoses: UTI (urinary tract infection), Headache, Neck pain Discharge - Discharge Plan Condition: Stable Disposition: HOME Prescriptions: Cyclobenzaprine TAB* [Flexeril 10 MG TAB*] 10 mg PO TID PRN #20 tab PRN Reason: Spasms oxyCODONE/Acetamin 5/325 MG* [Percocet 5/325 TAB*] 1 tab PO Q8H PRN #10 tab MDD 3 PRN Reason: Pain Patient Education Materials: Urinary Tract Infection in Women (ED), General Headache (ED) Referrals: Kika Hunter MD [Primary Care Provider] - 3 Days The documentation as recorded by the Rusty bass Rebecca accurately reflects the service I personally performed and the decisions made by me, Tamra Brown MD.
[2017-04-17 03:42] VITALS: BP 100/59
--- NOTE | 2017-04-17 08:22 | RAD ---
Indication: Headaches. CT of the brain was performed without IV contrast. Correlation is made with a prior MRI of the brain dated August 08, 2013. Ventricular structures are midline. No midline shift is noted. The extra-axial spaces are unremarkable. There is no evidence of intracranial mass or hemorrhage. No other high or low density lesions identified. Mastoid air cells are otherwise unremarkable. Paranasal sinuses are unremarkable. IMPRESSION: No intracranial mass or hemorrhage is noted.
[2017-04-19 00:38] LABS: CSF West Nile Virus RNA (PCR) Negative (Negative); West Nile Virus Source CSF
== END 2017-04-17 03:30 | disposition home or self-care (01) ==
LOC: ED 21:12
DX: N39.0 Urinary tract infection, site not specified (principal); R51 Headache; M54.2 Cervicalgia; R42 Dizziness and giddiness; Z88.1 Allergy status to other antibiotic agents; Z91.040 Latex allergy status; Z88.2 Allergy status to sulfonamides; Z91.048 Other nonmedicinal substance allergy status; J45.909 Unspecified asthma, uncomplicated; K21.9 Gastro-esophageal reflux disease without esophagitis; F41.9 Anxiety disorder, unspecified; F32.9 Major depressive disorder, single episode, unspecified; Z72.0 Tobacco use
CPT/HCPCS: 36415; 70450; 80053; 81003; 81015; 82375; 82945; 83605; 84157; 85025; 85652; 86140; 86788; 86789; 87070; 87205; 87798; 89051; 96365; 96366; 96375; 99284; A9270-GY; J0696; J1170; J2270; J2405

== ENCOUNTER 2017-04-18 13:31 | Emergency (ER) | payer OTHER ==
[2017-04-18] MEDS ORDERED: Ketorolac INJ* 30 MG/ML 1 ML VIAL IV ONE (15:14)
[2017-04-18] MEDS ORDERED: Metoclopramide IV* 5 MG/ML 2 ML VIAL IV ONE (15:14)
[2017-04-18] MEDS ORDERED: diPHENhydraMINE IV* 50 MG/ML 1 ml VIAL (BENADRYL) IV ONE (15:14)
[2017-04-18] MEDS: NS 0.9% 1000 ML* 2,000 ML IV ONE ×2 (15:38→15:39)
[2017-04-18 15:48] LABS: Hematocrit 42 % (35-47); Hemoglobin 13.9 g/dl (12.0-16.0); Mean Corpuscular HGB Conc 33 g/dl (31-36); Mean Corpuscular Hemoglobin 27 pg (27-31); Mean Corpuscular Volume 81 fL (80-97); Mean Platelet Volume 8 um3 (7.4-10.4); Red Blood Count 5.22 10^6/ul (4.0-5.4); Red Cell Distribution Width 15 % (10.5-15); White Blood Count 8.7 10^3/ul (3.5-10.8)
[2017-04-18] MEDS ORDERED: Iohexol 350* (CONTRAST) 500 ML MDV IV ONE (18:31)
--- NOTE | 2017-04-18 19:25 | RAD ---
INDICATION: 21-year-old with headaches. Request for CTA of the head and neck COMPARISON: CT brain same date TECHNIQUE: Axial source images were acquired with coronal and sagittal reconstructions. CT angiographic technique was utilized with injection of 80 mL Omnipaque 350. FINDINGS: Aortic arch: There are no CT angiogram abnormalities of the arch or the great vessels arising from the arch. Right carotid: The internal carotid artery, carotid bifurcation, extracranial portions of the internal carotid artery, carotid artery at the skull base, carotid siphon, and carotid termination appear normal. Left carotid:The internal carotid artery, carotid bifurcation, extracranial portions of the internal carotid artery, carotid artery at the skull base, carotid siphon, and carotid termination appear normal. Right middle and anterior cerebral arteries: There are no CT angiographic abnormalities of the middle or anterior cerebral arteries. Left middle and anterior cerebral arteries: There are no CT angiographic abnormalities of the middle or anterior cerebral arteries Right vertebral: The CT angiographic appearance of the vertebral artery is normal. Left vertebral: The CT angiographic appearance of the vertebral artery is normal. Basilar artery: The basilar artery and basilar tip appear normal. Posterior cerebral arteries: The distal distribution of the right and left posterior cerebral arteries is normal. [place] of [place]: The CT angiographic appearance of the [place] is normal. Source images show bilateral cervical lymphadenopathy in the carotid spaces. Enlarged lymph nodes some of which are confluent which measure up to 1.5 x 1.6 cm on the right and 1.2 x 1.8 cm on the left at There are no focal brain parenchymal abnormalities or abnormal areas of enhancement. IMPRESSION: 1. Normal CT angiographic appearance of the head and neck. 2. Bilateral cervical lymphadenopathy. Findings called to ED. CPT II Codes: 3100F PQRS
[2017-04-18 20:14] VITALS: BP 126/74
--- NOTE | 2017-04-18 22:27 | ED ---
Luly Burroughs Alfonso, scribed for Ricardo Faith MD on 04/18/17 at 1516 . Neck Pain - HPI Summary HPI Summary: This patient is a 21 year old female presenting to [facility] c/o sharp neck pain since 4 days ago. The pain in her lower neck and the base of her skull (4 days) has radiated to her eyes (last night). She rates the pain 8/10 in severity. Symptoms aggravated by movement, eating, and palpation, and alleviated by position. She reports vomiting last night and a headache. She drinks caffeine. - History of Current Complaint Chief Complaint: EDNeckComplaint Stated Complaint: NECK AND HEAD PAIN/NAUSEA Time Seen by Provider: 04/18/17 15:00 Hx Obtained From: Patient Onset/Duration Of Injury/Symptoms: Days - 4 days Timing: Constant, Lasting Days - 4 days Onset/Duration: Sudden Onset, Started days ago - 4 days ago, Still Present Severity Initially: Severe Severity Currently: Severe Pain Intensity: 8 Pain Scale Used: 0-10 Numeric Location: Discrete At: - Lower neck and the base of her skull (4 days), Radiates To: - Eyes (last night) Character: Sharp Aggravating Factors: Movement, Other: - Positive palpation and eating Alleviating Factors: Position Associated Signs & Symptoms: Positive: Headache - Allergies/Home Medications Allergies/Adverse Reactions: Allergies Allergy/AdvReac Type Severity Reaction Status Date / Time Azithromycin [From Zithromax] Allergy Hives Verified 04/18/17 13:42 Latex Allergy Blisters Verified 04/18/17 13:42 Sulfamethoxazole Allergy Hives Verified 04/18/17 13:42 w/Trimethoprim [From Bactrim] Adhesive Tape AdvReac Intermediate See Comment Verified 04/18/17 13:42 Zolpidem [From Ambien] AdvReac Intense Verified 04/18/17 13:42 panic attack Home Medications: Home Medications Cetirizine* [ZyrTEC 10 MG TAB*] 10 mg PO DAILY 04/18/17 [History Confirmed 04/18] Escitalopram (NF) [Lexapro 10 mg (NF)] 10 mg PO DAILY 04/18/17 [History Confirmed 04/18/17] Prazosin CAP* [Minipress CAP*] 1 mg PO DAILY 04/18/17 [History Confirmed 06/21/ 17] PMH/Surg Hx/FS Hx/Imm Hx Endocrine/Hematology History: Denies: Hx Anticoagulant Therapy, Hx Diabetes, Hx Thyroid Disease Cardiovascular History: Denies: Hx Congestive Heart Failure, Hx Deep Vein Thrombosis, Hx Hypertension , Hx Myocardial Infarction, Hx Pacemaker/ICD Respiratory History: Reports: Hx Asthma - allergy induced Denies: Hx Chronic Obstructive Pulmonary Disease (COPD), Hx Lung Cancer GI History: Reports: Hx Gastroesophageal Reflux Disease - ON MEDICATION FOR Denies: Hx Gall Bladder Disease, Hx Gastrointestinal Bleed, Hx Ulcer, Hx Urosepsis History: Reports: Other Problems/Disorders - gall stones Denies: Hx Kidney Stones, Hx Renal Disease Sensory History: Reports: Hx Contacts or Glasses - GLASSES AT TIMES Denies: Hx Hearing Aid Opthamlomology History: Reports: Hx Contacts or Glasses - GLASSES AT TIMES Neurological History: Reports: Hx Migraine - 0-2 PER WEEK- TREATS WITH GENERIC MED FOR EXCEDRIN MIGRAINE Denies: Hx Dementia, Hx Seizures, Hx Transient Ischemic Attacks (TIA) Psychiatric History: Reports: Hx Anxiety - ON MEDICATION FOR-AND SEES A COUNSLER , Hx Depression - ON MEDICATION FOR-SEES A COUNSLER FOR, Hx Panic Disorder - Pt' s mother will address with pt's MD, Hx of Violent Episodes Against Others - Surgical History Surgery Procedure, Year, and Place: 2001 excision of sinus abscess [facility]. wisdom teeth removed August 2012. knee arthroscopy 05/14/13 Hx Anesthesia Reactions: No Infectious Disease History: No Infectious Disease History: Denies: Hx Clostridium Difficile, Hx Hepatitis, Hx Human Immunodeficiency Virus (HIV), Hx of Known/Suspected MRSA, Hx Shingles, Hx Tuberculosis, Hx Known/ Suspected VRE, Hx Known/Suspected VRSA, History Other Infectious Disease, Traveled Outside the [place] in Last 30 Days - Family History Known Family History: Positive: Hypertension Negative: Cardiac Disease Family History: NON CONTRIBUTORY - Social History Alcohol Use: Occasionally Substance Use Type: Reports: None Substance Use Comment - Amount & Last Used: Occasionally Smoking Status (MU): Current Some Day Smoker Type: Cigarettes Amount Used/How Often: Occasionally smokes Have You Smoked in the Last Year: Yes Review of Systems Positive: Vomiting - Last night Positive: Arthralgia - Positive sharp lower neck pain Positive: Headache All Other Systems Reviewed And Are Negative: Yes Physical Exam Triage Information Reviewed: Yes Vital Signs On Initial Exam: Initial Vitals Temp Pulse Resp BP Pulse Ox 98.3 F 113 16 120/66 100 04/18/17 13:42 04/18/17 13:42 04/18/17 13:42 04/18/17 13:42 04/18/17 13:42 Vital Signs Reviewed: Yes Appearance: Positive: Well-Appearing, Pain Distress - Moderate, Obese Skin: Positive: Warm, Skin Color Reflects Adequate Perfusion, Dry Head/Face: Positive: Normal Head/Face Inspection Eyes: Positive: Normal ENT: Positive: Normal ENT inspection Neck: Positive: Tenderness @ - paracervical Respiratory/Lung Sounds: Positive: Clear to Auscultation, Breath Sounds Present Cardiovascular: Positive: RRR Abdomen Description: Positive: Nontender, Soft Bowel Sounds: Positive: Present Musculoskeletal: Positive: Normal Neurological: Positive: Normal, Sensory/Motor Intact, Alert, Oriented to Person Place, Time, CN Intact II-III Psychiatric: Positive: Affect/Mood Appropriate - Angel Coma Scale Coma Scale Total: 15 Diagnostics - Vital Signs Vital Signs Temp Pulse Resp BP Pulse Ox 04/18/17 15:00 98.3 F 113 16 120/66 100 04/18/17 13:42 98.3 F 113 16 120/66 100 - Laboratory Lab Results: Lab Results 04/18/17 04/18/17 Range/Units 15:35 15:35 WBC 8.7 (3.5-10.8) 10^3/ul RBC 5.22 (4.0-5.4) 10^6/ul Hgb 13.9 (12.0-16.0) g/dl Hct 42 (35-47) % MCV 81 (80-97) fL MCH 27 (27-31) pg MCHC 33 (31-36) g/dl RDW 15 (10.5-15) % Plt Count 173 (150-450) 10^3/ul MPV 8 (7.4-10.4) um3 Neut % (Auto) 65.6 (38-83) % Lymph % (Auto) 27.8 (25-47) % [place] % (Auto) 5.9 (1-9) % Eos % (Auto) 0.1 (0-6) % Baso % (Auto) 0.6 (0-2) % Absolute Neuts (auto) 5.7 (1.5-7.7) 10^3/ul Absolute Lymphs (auto) 2.4 (1.0-4.8) 10^3/ul Absolute Monos (auto) 0.5 (0-0.8) 10^3/ul Absolute Eos (auto) 0 (0-0.6) 10^3/ul Absolute Basos (auto) 0 (0-0.2) 10^3/ul Absolute Nucleated RBC 0.01 10^3/ul Nucleated RBC % 0.1 C-Reactive Protein 127.04 H (< 5.00) mg/L Result Diagrams: 04/18/17 15:35 Lab Statement: Any lab studies that have been ordered have been reviewed, and results considered in the medical decision making process. - CT Head CTA CT Interpretation Completed By: Radiologist - 1. Normal CT angiographic appearance of the head and neck. 2. Bilateral cervical lymphadenopathy. Neck Course/Dx - Course Course Of Treatment: Alex Baca has had JONES and neck pain for a few days and is getting worse. She had in LP here yesterday that was unremarkable. Her HAis worse but has not changed in character and doesn't sound like a spinal JONES. Her labs showed her CRP going up. I spoke with Dr. Clement who recommended a CTA which showed only significant cervicle lymphadenopathy. This is likely viral and we will continue symptomatic treatment. - Diagnoses Provider Diagnoses: Viral syndrome - Physician Notifications Discussed Care Of Patient With: Brianna lCement Time Discussed With Above Provider: 16:56 Instructed by Provider To: Other - Consulted Dr. Clement (neurologist) who recommends CTA. Discharge - Discharge Plan Condition: Stable Disposition: HOME Prescriptions: Ondansetron ODT TAB* [Zofran Odt TAB*] 4 mg PO Q6H PRN #20 tab.odt PRN Reason: Nausea/Vomiting Patient Education Materials: Viral Syndrome (ED) Forms: *Work Release Referrals: Kika Hunter MD [Primary Care Provider] - 3 Days The documentation as recorded by the Luly bass Alfonso accurately reflects the service I personally performed and the decisions made by me, Ricardo Faith MD.
== END 2017-04-18 20:13 | disposition home or self-care (01) ==
LOC: ED 13:31
DX: B34.9 Viral infection, unspecified (principal); R51 Headache; M54.2 Cervicalgia; Z72.0 Tobacco use; R11.10 Vomiting, unspecified
CPT/HCPCS: 36415; 70496; 70498; 85025; 86140; 96374; 96375; 99283; J1200; J1885; Q9967

== ENCOUNTER 2018-04-23 13:50 | Emergency (ER) | payer OTHER ==
[2018-04-23 14:14] VITALS: BP 129/81
--- NOTE | 2018-04-23 15:32 | UC ---
Abdominal Pain Female HPI - HPI Summary HPI Summary: lower abdomen and pelvic pain for 1 year--is using nexaplon and BCP to control pain and bleeding--[facility] (and she has for the past week) and now pain is worse---[facility] should pain worse to go to ed or urgent care - History of Current Complaint Chief Complaint: UCGU Stated Complaint: LOWER ABD PAIN Time Seen by Provider: 04/23/18 15:25 Hx Obtained From: Patient Hx Last Menstrual Period: 04/17/18 ?: No Onset/Duration: Gradual Onset, Lasting Weeks - 52, Still Present, Worse Since - this past week Timing: Constant Pain Intensity: 7 Pain Scale Used: 0-10 Numeric Location: Discrete At: RLQ, Discrete At: LLQ Radiates: No Character: Aching, Cramping Aggravating Factor(s): Nothing Alleviating Factor(s): Nothing, Other: - has been using tylenol and naproxen with out relief Associated Signs and Symptoms: Positive: Vaginal Bleeding Allergies/Adverse Reactions: Allergies Allergy/AdvReac Type Severity Reaction Status Date / Time adhesive tape Allergy Blisters Verified 04/23/18 15:32 azithromycin Allergy Hives Verified 04/23/18 15:32 latex Allergy Blisters Verified 04/23/18 15:32 sulfamethoxazole Allergy Hives Verified 04/23/18 15:32 [From Bactrim] trimethoprim [From Bactrim] Allergy Hives Verified 04/23/18 15:32 zolpidem Allergy Anxiety Verified 04/23/18 15:32 Home Medications: Home Medications Bupropion XL* [Wellbutrin XL *] 300 mg PO DAILY 04/23/18 [History Confirmed ] DOXYcycline CAP(*) [DOXYcycline 100MG CAP(*)] 100 mg PO BID 04/23/18 [History Confirmed 04/23/18] PMH/Surg Hx/FS Hx/Imm Hx Previously Healthy: No Psychological History: Anxiety, Depression, Post Traumatic Stress Disorder Other History Of: Negative For: HIV, Hepatitis B, Hepatitis C, Anticoagulant Therapy - Surgical History Surgical History: Yes Surgery Procedure, Year, and Place: 2001 excision of sinus abscess [facility]. knee arthroscopy 05/14/13 - Family History Known Family History: Positive: Hypertension Negative: Cardiac Disease - Social History Occupation: Student Lives: With Family Alcohol Use: Occasionally Substance Use Type: Marijuana Substance Use Comment - Amount & Last Used: occ usage Smoking Status (MU): Current Some Day Smoker Type: Cigarettes Amount Used/How Often: Occasionally smokes Have You Smoked in the Last Year: Yes Cessation Counseling: Counseled 3+Min - 10 Min - Immunization History Vaccination Up to Date: Yes Review of Systems Constitutional: Negative Skin: Negative Eyes: Negative ENT: Negative Respiratory: Negative Cardiovascular: Negative Gastrointestinal: Negative Genitourinary: Other - abdomen/pelvic pain Motor: Negative Neurovascular: Negative Musculoskeletal: Negative Neurological: Negative Psychological: Negative Is Patient Immunocompromised?: No All Other Systems Reviewed And Are Negative: Yes Physical Exam Triage Information Reviewed: Yes Appearance: Well-Appearing, Well-Nourished, Pain Distress Vital Signs: Initial Vital Signs Temp 98.4 F 04/23/18 14:06 Pulse 100 04/23/18 14:06 Resp 16 04/23/18 14:06 BP 129/81 04/23/18 14:06 Pulse Ox 99 04/23/18 14:06 Vital Signs Reviewed: Yes Eye Exam: Normal Eyes: Positive: Conjunctiva Clear ENT Exam: Normal ENT: Positive: Normal ENT inspection, Hearing grossly normal. Negative: Nasal congestion, Trismus, Muffled voice, Hoarse voice Dental Exam: Normal Neck exam: Normal Neck: Positive: Supple, Nontender Respiratory Exam: Normal Respiratory: Positive: Chest non-tender, Lungs clear, Normal breath sounds, No respiratory distress Cardiovascular Exam: Normal Cardiovascular: Positive: RRR, No Murmur, Pulses Normal, Brisk Capillary Refill Abdomen Description: Positive: No Organomegaly, Soft, Other: - tender LLQ. Negative: CVA Tenderness (R), CVA Tenderness (L), Distended, Guarding, McBurney' s Point Tenderness Bowel Sounds: Positive: Present Musculoskeletal Exam: Normal Musculoskeletal: Positive: Strength Intact, ROM Intact, No Edema Neurological Exam: Normal Neurological: Positive: Alert, Muscle Tone Normal Psychological Exam: Normal Psychological: Positive: Normal Response To Family Skin Exam: Normal Diagnostics - Radiology No standard instances Xray Interpretation: No Acute Changes Radiology Interpretation Completed By: Radiologist Abd Pain Female Course/Dx - Course Course Of Treatment: Discussed going to hospital with patient for further assessment --In light of usual bowel patterns, no n/v/d no fever pat opts to call PCP and get on out patient order and is agreeable to go to ED for increase pain fever nausea or vomiting - Differential Dx/Diagnosis Provider Diagnoses: Acute on Chronic Pelvic pain Discharge - Sign-Out/Discharge Documenting (check all that apply): Discharge/Admit/Transfer - Discharge Plan Condition: Stable Disposition: HOME Patient Education Materials: Ibuprofen (By mouth), Pelvic Pain in Women (ED) Referrals: Kika Hunter MD [Primary Care Provider] - 1 Day - Billing Disposition and Condition Condition: STABLE Disposition: Home
--- NOTE | 2018-04-23 16:17 | RAD ---
Indication: Central pelvic pain. Comparison: March 09, 2017 CT and August 09, 2016 ultrasound. Technique: Transvaginal pelvic ultrasound. Report: Unremarkable 6.4 x 3.1 x 4.0 cm anteverted uterus with 5.6 mm endometrium. No IUD visualized. Negative for free pelvic fluid. 2.9 x 2.7 x 1.7 cm RIGHT ovary with documented vascular flow is remarkable for small follicles only. 2.9 x 2.1 x 2.1 cm LEFT ovary with documented vascular flow is remarkable for small follicles only. No visualized extra ovarian adnexal region lesions evident. IMPRESSION: Negative pelvic ultrasound.
== END 2018-04-23 16:55 | disposition home or self-care (01) ==
LOC: UCEAST 13:50
DX: R10.2 Pelvic and perineal pain (principal); R10.32 Left lower quadrant pain; R10.31 Right lower quadrant pain; N93.9 Abnormal uterine and vaginal bleeding, unspecified; F41.9 Anxiety disorder, unspecified; F32.9 Major depressive disorder, single episode, unspecified; F43.10 Post-traumatic stress disorder, unspecified; Z88.1 Allergy status to other antibiotic agents; Z91.040 Latex allergy status; Z88.2 Allergy status to sulfonamides; Z88.8 Allergy status to other drugs, medicaments and biological substances; Z91.048 Other nonmedicinal substance allergy status; Z82.49 Family history of ischemic heart disease and other diseases of the circulatory system; Z71.6 Tobacco abuse counseling; F17.210 Nicotine dependence, cigarettes, uncomplicated
CPT/HCPCS: 76830; 81003; 84702; 99211; G0463

== ENCOUNTER 2019-01-20 08:49 | Emergency (ER) | payer OTHER ==
[2019-01-20] MEDS ORDERED: Cyclobenzaprine TAB* 10 MG PO ONE (09:17)
[2019-01-20 09:26] LABS: ABS Basophils 0.1 10^3/ul (0-0.2); ABS Eosinophils 0.6 10^3/ul (0-0.6); ABS Lymphocytes 2.7 10^3/ul (1.0-4.8); ABS Monocytes 0.6 10^3/ul (0-0.8); ABS Nucleated RBC 0 10^3/ul; Eosinophil % 5.6 %; Hematocrit 42 % (33-41); Lymphocyte % 26.9 %; Mean Corpuscular HGB Conc 33 g/dL (31-36); Mean Corpuscular Hemoglobin 27 pg (27-31); Mean Corpuscular Volume 80 fL (80-97); Mean Platelet Volume 7.2 fL (7.4-10.4); Nucleated Red Blood Cells % 0; Platelet Count 355 10^3/uL (150-450); Red Cell Distribution Width 14 % (10.5-15)
[2019-01-20 09:45] LABS: Albumin/Globulin Ratio 1.2 (1-3); BUN/Creatinine Ratio 12.5 (8-20); C Reactive Protein 15.13 mg/L (<8.01); Calcium 8.8 mg/dL (8.6-10.3); EGFR African American 123.7 (>60); EGFR Non-African American 102.3 (>60); Globulin 3.3 g/dL (2-4); Total Bilirubin 0.3 mg/dL (0.2-1.0); Total Protein 7.3 g/dL (6.4-8.9)
[2019-01-20 09:53] LABS: Urine Appearance Cloudy; Urine Bacteria Absent (Absent); Urine Bilirubin Negative (Negative); Urine Blood Negative (Negative); Urine Color Yellow; Urine Glucose Negative (Negative); Urine Ketones Negative (Negative); Urine Nitrite Negative (Negative); Urine Protein Negative (Negative); Urine Red Blood Cell 1+(3-5/hpf) (Absent); Urine Specific Gravity 1.021 (1.010-1.030); Urine Squamous Epithelial Cell Present (Absent); Urine Urobilinogen Negative (Negative); Urine White Blood Cell 1+(6-10/hpf) (Absent)
[2019-01-20] MEDS ORDERED: LORazepam TAB(*) 1 MG PO ONE (10:14)
[2019-01-20 12:11] VITALS: BP 142/95
--- NOTE | 2019-01-20 12:27 | ED ---
Neck Pain - HPI Summary HPI Summary: Patient is a 23-year-old female with a chief complaint of one-day of bilateral neck pain radiating to the occipital area without associated headache. Patient states she also had a brief episode of nausea, without vomiting. Patient is very anxious on arrival and states she feels this may be [place] spotted fever. She states she has had this 2 years ago and it feels the same. She was treated with a 3 week course of doxycycline and was very ill during that time. Today, she denies any fever, sweats, chills. Denies any associated rashes. Denies any tick bites or other bug bites. She denies any known trauma. She denies any photophobia. - History of Current Complaint Chief Complaint: EDNeckComplaint Stated Complaint: NECK PAIN PER PT Time Seen by Provider: 01/20/19 09:04 Hx Obtained From: Patient Hx Last Menstrual Period: 04/17/18 Timing: Constant Onset/Duration: Sudden Onset Severity Initially: Moderate Severity Currently: Moderate Pain Intensity: 7 Pain Scale Used: 0-10 Numeric Character: Aching Aggravating Factors: Nothing Alleviating Factors: Nothing Associated Signs & Symptoms: Positive: Negative - Risk Factors Meningitis Risk Factors: Negative - Allergies/Home Medications Allergies/Adverse Reactions: Allergies Allergy/AdvReac Type Severity Reaction Status Date / Time adhesive tape Allergy Blisters Verified 01/20/19 09:05 azithromycin Allergy Hives Verified 01/20/19 09:05 latex Allergy Blisters Verified 01/20/19 09:05 sulfamethoxazole Allergy Hives Verified 01/20/19 09:05 [From Bactrim] trimethoprim [From Bactrim] Allergy Hives Verified 01/20/19 09:05 zolpidem Allergy Anxiety Verified 01/20/19 09:05 Home Medications: Home Medications Adapalene/Benzoyl Peroxide [Epiduo Forte 0.3-2.5% Gel Pump] 1 applic TOPICAL DAILY 01/20/19 [History Confirmed 01/20/19] Minocycline (NF) 1 cap PO DAILY 01/20/19 [History Confirmed 01/20/19] PMH/Surg Hx/FS Hx/Imm Hx Previously Healthy: Yes Endocrine/Hematology History: Denies: Hx Anticoagulant Therapy, Hx Diabetes, Hx Thyroid Disease Cardiovascular History: Denies: Hx Congestive Heart Failure, Hx Deep Vein Thrombosis, Hx Hypertension , Hx Myocardial Infarction, Hx Pacemaker/ICD Respiratory History: Reports: Hx Asthma - allergy induced Denies: Hx Chronic Obstructive Pulmonary Disease (COPD), Hx Lung Cancer GI History: Reports: Hx Gastroesophageal Reflux Disease - ON MEDICATION FOR Denies: Hx Gall Bladder Disease, Hx Gastrointestinal Bleed, Hx Ulcer, Hx Urosepsis History: Reports: Other Problems/Disorders - gall stones Denies: Hx Kidney Stones, Hx Renal Disease Sensory History: Reports: Hx Contacts or Glasses - GLASSES AT TIMES Denies: Hx Hearing Aid Opthamlomology History: Reports: Hx Contacts or Glasses - GLASSES AT TIMES Neurological History: Reports: Hx Migraine - 0-2 PER WEEK- TREATS WITH GENERIC MED FOR EXCEDRIN MIGRAINE Denies: Hx Dementia, Hx Seizures, Hx Transient Ischemic Attacks (TIA) Psychiatric History: Reports: Hx Anxiety - ON MEDICATION FOR-AND SEES A COUNSLER , Hx Depression - ON MEDICATION FOR-SEES A COUNSLER FOR, Hx Panic Disorder - Pt' s mother will address with pt's MD, Hx of Violent Episodes Against Others - Surgical History Surgery Procedure, Year, and Place: 2001 excision of sinus abscess [facility]. knee arthroscopy 05/14/13 Hx Anesthesia Reactions: No - Immunization History Hx Pertussis Vaccination: No Immunizations Up to Date: Yes Infectious Disease History: No Infectious Disease History: Denies: Hx Clostridium Difficile, Hx Hepatitis, Hx Human Immunodeficiency Virus (HIV), Hx of Known/Suspected MRSA, Hx Shingles, Hx Tuberculosis, Hx Known/ Suspected VRE, Hx Known/Suspected VRSA, History Other Infectious Disease, Traveled Outside the [place] in Last 30 Days - Family History Known Family History: Positive: Hypertension Negative: Cardiac Disease Family History: NON CONTRIBUTORY - Social History Occupation: Employed Part-time, Student Lives: With Family Alcohol Use: Weekly Hx Substance Use: Yes Substance Use Type: Reports: Marijuana Substance Use Comment - Amount & Last Used: occ usage Smoking Status (MU): Current Some Day Smoker Type: Cigarettes Amount Used/How Often: Occasionally smokes Have You Smoked in the Last Year: Yes Review of Systems Constitutional: Negative Negative: Fever, Chills, Fatigue, Skin Diaphoresis Negative: Photophobia, Blurred Vision, Erythema Negative: Palpitations, Chest Pain Negative: Shortness Of Breath, Cough Positive: no symptoms reported, see HPI Positive: Arthralgia - bilateral neck pain radiating to the occipital region without associated JONES. Negative: Myalgia Negative: Rash, Bruising Neurological: Negative Positive: Headache All Other Systems Reviewed And Are Negative: Yes Physical Exam Triage Information Reviewed: Yes Vital Signs On Initial Exam: Initial Vitals Temp Pulse Resp BP Pulse Ox 97.9 F 96 18 150/106 98 01/20/19 08:59 01/20/19 08:59 01/20/19 08:59 01/20/19 08:59 01/20/19 08:59 Vital Signs Reviewed: Yes Appearance: Positive: Well-Appearing, Well-Nourished Skin: Positive: Warm, Skin Color Reflects Adequate Perfusion Head/Face: Positive: Normal Head/Face Inspection Eyes: Positive: EOMI, Conjunctiva Clear Neck: Positive: No Lymphadenopathy, Tenderness @ - bilateral neck pain radiating to the occipital region without associated JONES Respiratory/Lung Sounds: Positive: Clear to Auscultation, Breath Sounds Present Cardiovascular: Positive: RRR, Pulses are Symmetrical in both Upper and Lower Extremities Abdomen Description: Positive: Nontender Bowel Sounds: Positive: Present Musculoskeletal: Positive: Strength/ROM Intact, Pain @ - bilateral neck pain Neurological: Positive: Normal, Sensory/Motor Intact, Alert, Oriented to Person Place, Time Psychiatric: Positive: Normal, Affect/Mood Appropriate AVPU Assessment: Alert Diagnostics - Vital Signs Vital Signs Temp Pulse Resp BP Pulse Ox 01/20/19 12:10 98.9 F 101 17 142/95 97 01/20/19 10:17 18 01/20/19 08:59 97.9 F 96 18 150/106 98 - Laboratory Lab Results: Lab Results 01/20/19 01/20/19 01/20/19 Range/Units 09:17 09:17 09:17 WBC 10.0 (3.5-10.8) 10^3/uL RBC 5.20 H (3.70-4.87) 10^6 /uL Hgb 14.0 (12.0-16.0) g/dL Hct 42 H (33-41) % MCV 80 (80-97) fL MCH 27 (27-31) pg MCHC 33 (31-36) g/dL RDW 14 (10.5-15) % Plt Count 355 (150-450) 10^3/uL MPV 7.2 L (7.4-10.4) fL Neut % (Auto) 59.9 % Lymph % (Auto) 26.9 % [place] % (Auto) 6.5 % Eos % (Auto) 5.6 % Baso % (Auto) 1.1 % Absolute Neuts (auto) 6.0 (1.5-7.7) 10^3/ul Absolute Lymphs (auto) 2.7 (1.0-4.8) 10^3/ul Absolute Monos (auto) 0.6 (0-0.8) 10^3/ul Absolute Eos (auto) 0.6 (0-0.6) 10^3/ul Absolute Basos (auto) 0.1 (0-0.2) 10^3/ul Absolute Nucleated RBC 0 10^3/ul Nucleated RBC % 0 Sodium 137 (135-145) mmol/L Potassium 4.0 (3.5-5.0) mmol/L Chloride 105 (101-111) mmol/L Carbon Dioxide 23 (22-32) mmol/L Anion Gap 9 (2-11) mmol/L BUN 9 (6-24) mg/dL Creatinine 0.72 (0.51-0.95) mg/dL Est GFR ( Amer) 123.7 (>60) Est GFR (Non-Af Amer) 102.3 (>60) BUN/Creatinine Ratio 12.5 (8-20) Glucose 96 (70-100) mg/dL Lactic Acid 0.5 (0.5-2.0) mmol/L Calcium 8.8 (8.6-10.3) mg/dL Total Bilirubin 0.30 (0.2-1.0) mg/dL AST 17 (13-39) U/L ALT 25 (7-52) U/L Alkaline Phosphatase 72 (34-104) U/L C-Reactive Protein 15.13 H (<8.01) mg/L Total Protein 7.3 (6.4-8.9) g/dL Albumin 4.0 (3.2-5.2) g/dL Globulin 3.3 (2-4) g/dL Albumin/Globulin Ratio 1.2 (1-3) Urine Color Urine Appearance Urine pH (5-9) Ur Specific [place] (1.010-1.030) Urine Protein (Negative) Urine Ketones (Negative) Urine Blood (Negative) Urine Nitrate (Negative) Urine Bilirubin (Negative) Urine Urobilinogen (Negative) Ur Leukocyte Esterase (Negative) Urine WBC (Auto) (Absent) Urine RBC (Auto) (Absent) Ur Squamous Epith Cells (Absent) Urine Bacteria (Absent) Urine Glucose (Negative) 01/20/19 Range/Units 09:35 WBC (3.5-10.8) 10^3/uL RBC (3.70-4.87) 10^6 /uL Hgb (12.0-16.0) g/dL Hct (33-41) % MCV (80-97) fL MCH (27-31) pg MCHC (31-36) g/dL RDW (10.5-15) % Plt Count (150-450) 10^3/uL MPV (7.4-10.4) fL Neut % (Auto) % Lymph % (Auto) % [place] % (Auto) % Eos % (Auto) % Baso % (Auto) % Absolute Neuts (auto) (1.5-7.7) 10^3/ul Absolute Lymphs (auto) (1.0-4.8) 10^3/ul Absolute Monos (auto) (0-0.8) 10^3/ul Absolute Eos (auto) (0-0.6) 10^3/ul Absolute Basos (auto) (0-0.2) 10^3/ul Absolute Nucleated RBC 10^3/ul Nucleated RBC % Sodium (135-145) mmol/L Potassium (3.5-5.0) mmol/L Chloride (101-111) mmol/L Carbon Dioxide (22-32) mmol/L Anion Gap (2-11) mmol/L BUN (6-24) mg/dL Creatinine (0.51-0.95) mg/dL Est GFR ( Amer) (>60) Est GFR (Non-Af Amer) (>60) BUN/Creatinine Ratio (8-20) Glucose (70-100) mg/dL Lactic Acid (0.5-2.0) mmol/L Calcium (8.6-10.3) mg/dL Total Bilirubin (0.2-1.0) mg/dL AST (13-39) U/L ALT (7-52) U/L Alkaline Phosphatase (34-104) U/L C-Reactive Protein (<8.01) mg/L Total Protein (6.4-8.9) g/dL Albumin (3.2-5.2) g/dL Globulin (2-4) g/dL Albumin/Globulin Ratio (1-3) Urine Color Yellow Urine Appearance Cloudy Urine pH 5.0 (5-9) Ur Specific [place] 1.021 (1.010-1.030) Urine Protein Negative (Negative) Urine Ketones Negative (Negative) Urine Blood Negative (Negative) Urine Nitrate Negative (Negative) Urine Bilirubin Negative (Negative) Urine Urobilinogen Negative (Negative) Ur Leukocyte Esterase 1+ A (Negative) Urine WBC (Auto) 1+(6-10/hpf) A (Absent) Urine RBC (Auto) 1+(3-5/hpf) A (Absent) Ur Squamous Epith Cells Present A (Absent) Urine Bacteria Absent (Absent) Urine Glucose Negative (Negative) Result Diagrams: 01/20/19 09:17 01/20/19 09:17 Lab Statement: Any lab studies that have been ordered have been reviewed, and results considered in the medical decision making process. Neck Course/Dx - Course Course Of Treatment: Patient states on previous visit, 2 years ago she was diagnosed with [place] spotted fever. She states she never did have a fever or a rash. She was treated with doxycycline. Today her labs and CSF analysis showed no evidence of rickettsia/RMSF. Discussed this with patient. 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 I do not have access to these notes. On physical examination, patient has bilateral neck tenderness without cervical or thoracic spine tenderness. Denies any headache. Denies any visual changes. Patient is able to flex and extend at the neck, as well as rotate about the neck, however with discomfort. This does not worsen her JONES. She states she had associated nausea without vomiting. On reexamination, patient states the tightness feeling is going into her chest area. She states this is a stiffness. EKG obtained which shows a normal sinus rhythm. UA obtained which shows evidence of UTI. While in the ED, she is given a Flexeril and subsequently and Ativan. She states this improved her symptoms, however continues to state she feels the neck strain. I've discussed with the patient I am unable to find any evidence of previous [place] spotted fever diagnosis. Patient will be treated for UTI and will be given Flexeril for her neck pain. She understands she develops any fevers, headaches, rashes or worsening symptoms to return to the ED immediately. Her and mother are both okay with plan at discharge. All questions answered appropriately by provider prior to discharge. - Diagnoses Provider Diagnoses: Neck stiffness, UTI (urinary tract infection) Discharge - Sign-Out/Discharge Documenting (check all that apply): Patient Departure Patient Received Moderate/Deep Sedation with Procedure: No - Discharge Plan Condition: Stable Disposition: HOME Prescriptions: Cyclobenzaprine TAB* [Flexeril TAB*] 10 mg PO TID #15 tab Nitrofurantoin Monohyd/M-Cryst [Macrobid 100 mg Capsule] 100 mg PO BID #10 cap Patient Education Materials: Urinary Tract Infection in Women (ED), Muscle Spasm (ED) Forms: *School Release Referrals: Kika Hunter MD [Primary Care Provider] - Additional Instructions: Please return to the ED for any worsening symptoms as discussed Macrobid twice daily x 5 days for UTI Flexeril up to three times daily as needed for neck stiffness Moist heat to the area as much as possible If you develop fever, sweats, chills, rashes, etc. - Billing Disposition and Condition Condition: STABLE Disposition: Home
== END 2019-01-20 12:10 | disposition home or self-care (01) ==
LOC: ED 08:49
DX: M43.6 Torticollis (principal); N39.0 Urinary tract infection, site not specified; R11.0 Nausea; R51 Headache; K21.9 Gastro-esophageal reflux disease without esophagitis; F41.9 Anxiety disorder, unspecified; F32.9 Major depressive disorder, single episode, unspecified; Z88.1 Allergy status to other antibiotic agents; Z91.040 Latex allergy status; Z88.2 Allergy status to sulfonamides; Z88.8 Allergy status to other drugs, medicaments and biological substances; Z91.048 Other nonmedicinal substance allergy status; Z72.0 Tobacco use
CPT/HCPCS: 36415; 80053; 81003; 81015; 83605; 85025; 86140; 87086; 93005; 99283; A9270-GY

== ENCOUNTER 2019-12-17 18:40 | Emergency (ER) | payer OTHER ==
--- OUTSIDE RECORDS SUMMARY | 2019-12-17 18:46 | XMS REPORT | Continuity of Care Document ---
:1995 External Reference #:[id number] Author Name Elise Elliott M.D. Address [address] [place] [address] Care Team Providers Name Role Phone Elise Elliott M.D. 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 Onset: 11/19/2019 Recurrent major depressive episodes Elise Elliott M.D. Onset: 11/19/2019 Mild intermittent asthma Elise Elliott M.D. Onset: 11/19/2019 Obsessive-compulsive disorder Elise Elliott M.D. Onset: 11/19/2019 Obesity Elise Elliott M.D. Onset: 11/19/2019 Social History Type Date Description Comments Sex Unknown Tobacco Use Start: Unknown "Social" Smoker ETOH Use Occasional 1x week Recreational Drug Use Marijuana 1x month Tobacco Use Start: Unknown Patient is a current smoker, smokes some days Smoking Status Reviewed: 11/19/19 Patient is a current smoker, smokes some days Exercise Type/Frequency Does not exercise Allergies, Adverse Reactions, Alerts Active Allergies Reaction Severity Comments Date Ambien hallucinations 11/19/2019 Bactrim rash 11/19/2019 Zithromax Hives 11/19/2019 Latex Hives hives 11/19/2019 fish 11/19/2019 Medications Active Medications SIG Qnty Indications Ordering Date Provider Montelukast Sodium 1 by mouth every 90tabs Elise Elliott 11/19/2019 day M.D. 10mg Tablets Proair HFA 2 puffs every 4-6 h 8.500gm J45.20 Elise Elliott, 11/19/2019 as needed M.D. 108(90Base) mcg/Act cough/wheeze/ok for Aerosol generic Diazepam 1 tab 30 min prior 2tabs Elise Elliott 11/19/2019 5mg to appointment; can M.D. Tablets repeat at 1 tab at time of appointment Zyrtec Allergy 1 by mouth every Unknown 10mg day, please fill Tablets with generic Prozac 1 by mouth every Unknown 40mg day Capsules Gabapentin 2 by mouth once a Unknown 300mg day Capsules Nexplanon Unknown 68mg Implant Immunizations CPT Code Status Date Vaccine Lot # [id number] Given 11/19/2019 Influenza vac quadrivalent preservative free 6 [id number] months and up Vital Signs Date Vital Result Comment 11/19/2019 1:43pm BP Systolic 120 mmHg BP Diastolic 92 mmHg Heart Rate 96 /min Body Temperature 97.7 F Height 65 inches 5'5" Weight 222.00 lb BMI (Body Mass Index) 36.9 kg/m2 Results Test Acquired Date Facility Test Result H/L Range Note Comprehensive 07/04/2019 [facility]) Sodium 141 mEq/L 134-149 Metabolic Prof Potassium 4.0 mEq/L 3.6-5.5 Chloride 107 mEq/L 94-112 Carbon Dioxide 19 mEq/L Low 21-32 1 Glucose 99 mg/dL 70-105 BUN 13 mg/dL 6-26 Creatinine 0.8 mg/dL 0.6-1.4 BUN/Creat Ratio 16.3 CALC 8.0-36.0 Calcium 9.3 mg/dL 8.6-10.2 Total Protein 7.5 g/dL 6.4-8.3 Albumin 4.6 g/dL 3.8-5.5 Globulin 2.9 g/dL 2.0-4.8 A/G Ratio 1.6 CALC 0.6-2.3 Alk. Phosphatase 77 U/L 30-110 Alt (SGPT) 62 U/L High 7-35 2 Ast (Sgot) 33 U/L 5-34 Total Bilirubin 0.6 mg/dL 0.2-1.3 GFR Non- >60 ml/min/1.73m^ >=60 GFR >60 ml/min/1.73m^ >=60 Lipid Profile 07/04/2019 [facility]) Cholesterol 205 mg/dL High 120-200 Triglycerides 95 mg/dL 30-200 HDL Cholesterol 41 mg/dL 30-85 LDL (Calculated) 145 CALC High 0-129 VLDL Cholesterol 19 mg/dL 0-50 HDL Risk Factor 5.0 CALC High 0.0-4.4 CBC Electronic [facility] 07/04/2019 [facility]) WBC 8.9 x10^3/UL 4.0- 10.0 RBC 4.97 x10^6/UL 3.93-6.00 HGB 13.7 g/dL 12.0-17.0 HCT 40 % 35-50 MCV 81.3 fL 80.0-95.0 MCH 27.6 pg 25.6-32.2 MCHC 33.9 g/dL 32.2-36.0 RDW-CV 13.4 % 11.6-14.4 PLT 350 x10^3/UL 163-400 MPV 9.6 fL 9.4-12.4 Otoniel# 4.94 x10^3/UL 1.56-6.13 Lymph# 2.77 x10^3/UL 1.18-3.74 [place]# 0.60 x10^3/UL 0.24-0.82 Eos # 0.5 x10^3/UL 0.0-0.5 Baso # 0.03 x10^3/UL 0.01-0.08 O[place]iel% 55.8 % 34.0-70.0 Lymph % 31.2 % 20.0-52.0 [place]% 6.8 % 5.0-12.0 Eos% 5.7 % 0.7-7.0 Baso% 0.3 % 0.1-1.2 1 RESULTS VERIFIED BY REPEAT ANALYSIS 2 RESULTS VERIFIED BY REPEAT ANALYSIS Procedures Description No Information Available Medical Devices Description No Information Available Encounters Description No Information Available Assessments Date Code Description Provider 11/19/2019 Z00.01 Encounter for general adult medical examination Elise Elliott M.D. with abnormal findings 11/19/2019 R94.5 Abnormal results of liver function studies Elise Elliott M.D. 11/19/2019 E78.5 Hyperlipidemia, unspecified Elise Elliott M.D. 11/19/2019 E66.9 Obesity, unspecified Elise Elliott M.D. 11/19/2019 F42.9 Obsessive-compulsive disorder, unspecified Elise Elliott M.D. 11/19/2019 J45.20 Mild intermittent asthma, uncomplicated Elise Elliott M.D. 11/19/2019 F33.9 Major depressive disorder, recurrent, Elise Elliott M.D. unspecified 11/19/2019 R94.6 Abnormal results of thyroid function studies Elise Elliott M.D. 11/19/2019 D64.9 Anemia, unspecified Elise Elliott M.D. 11/19/2019 Z11.3 Encounter for screening for infections with a Elise Elliott M.D. predominantly sexual mode of transmission 11/19/2019 F63.3 Trichotillomania Elise Elliott M.D. 07/04/2019 Z00.00 Encntr for general adult medical exam w/o Elise Elliott M.D. abnormal findings Plan of Treatment Future Appointment(s):01/19/2020 8:30 am - Elise Elliott M.D. at [facility] Ymqesw6201/27/2020 2:40 pm - Elise Elliott M.D. at [facility] Vtrnen3211/19/2019 - Elise Elliott M.D.Z00.01 Encounter for general adult medical examination with abnormal findingsComments:Encourage an active and healthy lifestyle with proper eating habits including fruits, vegetables, 6-8 glasses of water a day and monitoring portion size. Recommend 30 minutes of daily physical activityincluding walking, aerobic exercise, sports, yoga or dance. Any activity is better than no activity.Recommend routine eye and dental exams. Next physical is due in 1-2 years. Recommend annual influenza vaccinationFollow up:2-3 mo PAP, take valium before [id number] Abnormal results of liver function studiesComments:abstain from alcohol 2 days vhiwuT46.5 Hyperlipidemia, unspecifiedNew Labs:Lipid Panel-[facility], Ordered: 11/19/19Comp Metabolic-[facility], Ordered: 11/19/19Comments:Goal LDL is <130, HDL >40, Triglycerides <200 Cholesterol level is high. To lower cholesterol, the [place] [employer] recommends eating a dietary pattern that emphasizes fruits, vegetables, whole grains, low-fat dairy products, poultry, fish and nuts such as the Mediterranean Diet. You should also limit red meat, alcohol and sugary foods and beverages. If you smoke, heart disease risks are another reason to quit. Being physically active is also important to prevent heart disease and stroke. Just 40 minutes of aerobic exercise of moderate to vigorous intensity done three to four times a week is enough to lower both cholesterol and high blood pressure. Brisk walking, swimming, bicycling or dance classes are examples.For more information visit: [email or web address] make a follow up appointment to discuss lifestyle modification. Recommend rechecking fasting blood work in 4-6 months with lifestyle modifications in place.Follow up:3moE66.9 Obesity, unspecifiedComments:Counseled on heart healthy diet such as Mediterranean diet. Eat protein and vegetables first then carbohydrates last. Get at least 150 minutes of moderate aerobic activity or 75 minutes of vigorous aerobic activity a week, or a combination of moderate and vigorous activity. General goal of 30 minutes of physical activity a day.F42.9 Obsessive-compulsive disorder, unspecifiedComments:hair pulling, was on NAC seeing TMCHJ45.20 Mild intermittent asthma, uncomplicatedNew Medication:Proair HFA 108(90 Base) mcg/ Act - 2 puffs every 4-6 h as needed cough/wheeze/ok for genericComments:restart montelkast ; stopped a year ago, get records from [facility], call if using >2xper week as that is not controlled pxpuxwY31.9 Major depressive disorder, recurrent, unspecifiedComments:stable on regimen call if symptoms djnzcnA53.6 Abnormal results of thyroid function studiesNew Labs:T4 & TSH, Ordered: 11/19/19Comments:check labsD64.9 Anemia, unspecifiedNew Labs:CBC Electronic-[facility], Ordered: 11/19/19Iron, Total ([facility]), Ordered: B12 ([facility]), Ordered: 11/19/19Comments:check labs, states hx iron deficiency ; was drinking more alcohol at time of last labsZ11.3 Encounter for screening for infections with a predominantly sexual mode of transmissionNew Labs:HIV 1 2 AB Self Referred, Ordered: 11/19/19RPR ([facility]), Ordered: 11/19/19gc/chlam aptima urine ctx, Ordered: 11/19/19Hepatitis C AB W/RFX Riba, Ordered: 11/19/19Hepatitis B Surface Antigen, Ordered: 11/19/19Comments:check labs, encourage condom use every time to protect against sexually transmitted diseasesFollow up:pap 2-3 moF63.3 TrichotillomaniaAllComments:Medication Management Patient Understands medications she's taking? Yes No Are there Barriers to Adherence? Yes No Has the patient been asked about herbal supplements and therapies, and OTC meds? Yes No Functional Status Description No Information Available Mental Status Description No Information Available Referrals Description No Information Available
[2019-12-17 18:58] VITALS: BP 119/80
--- NOTE | 2019-12-17 19:50 | UC ---
Throat Pain/Nasal Isaac HPI - HPI Summary HPI Summary: Sore throat and occasional vomiting, mostly gagging per pt. Her partner is also sick. she is able to drink fluids and urinate normally. - History of Current Complaint Chief Complaint: UCGeneralIllness Stated Complaint: THROAT COMPLAINT Time Seen by Provider: 12/17/19 19:27 Hx Obtained From: Patient Hx Last Menstrual Period: nexplanon Pain Intensity: 4 Pain Scale Used: 0-10 Numeric Associated Signs & Symptoms: Positive: Vomiting. Negative: Dysphagia, Hoarseness - Allergies/Home Medications Allergies/Adverse Reactions: Allergies Allergy/AdvReac Type Severity Reaction Status Date / Time adhesive tape Allergy Blisters Verified 12/17/19 18:58 azithromycin Allergy Hives Verified 12/17/19 18:58 latex Allergy Blisters Verified 12/17/19 18:58 sulfamethoxazole Allergy Hives Verified 12/17/19 18:58 [From Bactrim] trimethoprim [From Bactrim] Allergy Hives Verified 12/17/19 18:58 zolpidem Allergy Anxiety Verified 12/17/19 18:58 Home Medications: Home Medications Cetirizine* [ZyrTEC 10 MG TAB*] 10 mg PO DAILY 04/18/17 [History Confirmed 12/17] Etonogestrel [Nexplanon] 68 mg IMPLANT .Q 3 YEARS 08/15/18 [History Confirmed ] Gabapentin CAP(*) [Neurontin 100 mg CAP(*)] 600 mg PO DAILY PRN 08/15/18 [ History Confirmed 12/17/19] Levalbuterol HFA INHALER* [Xopenex Hfa Inhaler*] 2 puff INH DAILY PRN 08/15/18 [ History Confirmed 12/17/19] Adapalene/Benzoyl Peroxide [Epiduo Forte 0.3-2.5% Gel Pump] 1 applic TOPICAL DAILY 01/20/19 [History Confirmed 12/17/19] FLUoxetine* [PROzac*] 60 mg PO DAILY 12/17/19 [History Confirmed 12/17/19] Montelukast Sodium TAB* [Singulair TAB*] 10 mg PO BEDTIME 12/17/19 [History Confirmed 12/17/19] PMH/Surg Hx/FS Hx/Imm Hx - Additional Past Medical History Additional PMH: acne Previously Healthy: Yes Other History Of: Negative For: HIV, Hepatitis B, Hepatitis C, Anticoagulant Therapy - Surgical History Surgical History: Yes Surgery Procedure, Year, and Place: Tube in ears. 2002 excision of sinus abscess [facility]. knee arthroscopy 05/14/13. [place] - Family History Known Family History: Positive: Hypertension Negative: Cardiac Disease Family History: NON CONTRIBUTORY - Social History Alcohol Use: Weekly Alcohol Amount: 3 Substance Use Type: Marijuana Substance Use Comment - Amount & Last Used: monthly Smoking Status (MU): Current Some Day Smoker Type: Cigarettes Amount Used/How Often: Occasionally smokes Have You Smoked in the Last Year: Yes - Immunization History Vaccination Up to Date: Yes Review of Systems All Other Systems Reviewed And Are Negative: Yes Constitutional: Negative: Fever, Chills, Fatigue Eyes: Negative: Drainage ENT: Positive: Sore Throat Gastrointestinal: Positive: Vomiting - x2 w/ gagging x5. Negative: Abdominal Pain, Diarrhea, Nausea Neurological/Mental Status: Negative: Headache Physical Exam Triage Information Reviewed: Yes Appearance: Well-Appearing Vital Signs: Initial Vital Signs Temp 98.4 F 12/17/19 18:52 Pulse 102 12/17/19 18:52 Resp 16 12/17/19 18:52 BP 119/80 12/17/19 18:52 Pulse Ox 100 12/17/19 18:52 Vital Signs Reviewed: Yes Eyes: Positive: Conjunctiva Clear ENT: Positive: TMs normal, Hoarse voice, Uvula midline. Negative: Tonsillar swelling, Tonsillar exudate Neck: Positive: Supple, No Lymphadenopathy, Tenderness @ - L side of throat Respiratory: Positive: Lungs clear Cardiovascular Exam: Normal Neurological: Positive: Alert Skin: Negative: Rashes Throat Pain/Nasal Course/Dx - Course Course Of Treatment: Pharyngitis in a healthy F w/ neg. rapid strep today and sick contacts. vitals good. rapid strep neg. viral eitology. disc ways to manage symptoms. return if worsening. - Differential Dx/Diagnosis Differential Diagnosis/HQI/PQRI: Pharyngitis, Tonsillitis, URI, Other Provider Diagnosis: Viral pharyngitis Discharge ED - Sign-Out/Discharge Documenting (check all that apply): Patient Departure All imaging exams completed and their final reports reviewed: No Studies - Discharge Plan Condition: Good Disposition: HOME Patient Education Materials: Pharyngitis (ED) Referrals: Kika Hunter MD [Primary Care Provider] - Additional Instructions: please read patient education - Billing Disposition and Condition Condition: GOOD Disposition: Home
== END 2019-12-17 19:57 | disposition home or self-care (01) ==
LOC: UCEAST 18:40
DX: J02.8 Acute pharyngitis due to other specified organisms (principal); R11.10 Vomiting, unspecified; Z88.1 Allergy status to other antibiotic agents; Z91.040 Latex allergy status; Z88.2 Allergy status to sulfonamides; Z88.8 Allergy status to other drugs, medicaments and biological substances; Z91.048 Other nonmedicinal substance allergy status; Z72.0 Tobacco use
CPT/HCPCS: 87651; 99211; G0463